=== PATIENT | male | born 1950 | race Two or more races ===

== ENCOUNTER 2017-09-25 13:02 | Inpatient (IN) | payer MEDICAID, MEDICARE ==
[~2017-09-25] VITALS: Ht 175.3 cm; Wt 90.7 kg
--- NOTE | 2017-09-25 14:22 | Emergency Room Report ---
History of Present Illness General Chief Complaint: Altered Level of Consciousness Source: Patient, Medical Record, EMS Present Illness HPI 67-year-old male, history of some developmental delay, psych history, presenting with altered mental status. Patient is confused, EMS stated that patient has been more altered than his usual. Has been incontinent when he is usually not incontinence. When asked the patient, he knows his name but does not know why he is here. He is denying any complaints at this time. No other history is able to be obtained Allergies: Coded Allergies: No Known Allergies (Unverified , 09/25/17) Patient History Past Medical History: see triage record Past Surgical History: none Pertinent Family History: none Reviewed Nursing Documentation: PMH: Agreed, PSxH: Agreed Nursing Documentation-PMH Past Medical History: No History, Except For Hx Cardiac Problems: Yes - Benign Prostatic Hyperplasia Hx Hypertension: Yes Review of Systems All Other Systems: limited - confused Physical Exam Vital Signs Date Time Temp Pulse Resp B/P (MAP) Pulse Ox O2 Delivery O2 Flow Rate FiO2 09/25/17 13:22 96.8 110 18 120/67 98 Room Air Sp02 EP Interpretation: reviewed, normal General Appearance: no apparent distress, alert, other - calm but confused Head: normocephalic, atraumatic Eyes: bilateral eye normal inspection, bilateral eye PERRL, bilateral eye EOMI ENT: normal ENT inspection, normal pharynx, normal voice, moist mucus membranes Neck: normal inspection, full range of motion, supple Respiratory: normal inspection, lungs clear, normal breath sounds, no respiratory distress, no retraction, no wheezing, speaking full sentences, chest symmetrical Cardiovascular #1: normal inspection, regular rate, rhythm, no edema, normal capillary refill Cardiovascular #2: 2+ radial (R), 2+ radial (L) Gastrointestinal: normal inspection, non tender, soft, non-distended, no guarding Genitourinary: no CVA tenderness Musculoskeletal: normal inspection, back normal, normal range of motion, non- tender Neurologic: other - aox1, moves all ext spont, good strength throughout Psychiatric: other - confused, +dev delay Skin: normal inspection, normal color, no rash, warm/dry, well hydrated, normal turgor Medical Decision Making Diagnostic Impression: Primary Impression: Altered level of consciousness ER Course 67-year-old male with altered mental status, for one day DDX: hypovolemic/dehydration vs. cardiac vs. metabolic (hypoglycemia, hyponatremia) , vs neuro (seizure, CVA, intracranial bleed) Versus infectious, UTI/pneumonia Plan: bgm, cbc, bmp, ekg, cxr consider IVF CT head ER course: Patient has been monitored during ED stay, HD stable CT Head neg continues to be confused not febrile, no nuchal rigidity Disposition: Patient is to be admitted to [facility] D/W hospitalist Dr Khan Please note that this Emergency Department Report was dictated using [employer] operator technology software, occasionally this can lead to erroneous entry secondary to interpretation by the dictation equipment. EKG Diagnostic Results EP Interpretation: Yes Rate: normal Rhythm: NSR ST Segments: No acute changes ASA given to patient: No Rhythm Strip EP Interpretation: Yes Rate: 99 Rhythm: NSR, no PVCs, no ectopy Chest X-ray CXR: Ordered: Yes 1 view Indication: Altered mental status EP interpretation: Yes Interpretation: No consolidation, no effusion,mild pulm vasc congestion Impression: mild pulm vasc congestion Electronically signed by Nanci Dickson MD Laboratory Tests Test 09/25/17 14:45 09/25/17 17:39 White Blood Count 12.1 K/UL (4.8-10.8) H Red Blood Count 4.38 M/UL (4.70-6.10) L Hemoglobin 12.5 G/DL (14.2-18.0) L Hematocrit 40.0 % (42.0-52.0) L Mean Corpuscular Volume 91 FL (80-99) Mean Corpuscular Hemoglobin 28.6 PG (27.0-31.0) Mean Corpuscular Hemoglobin Concent 31.3 G/DL (32.0-36.0) L Red Cell Distribution Width 12.4 % (11.6-14.8) Platelet Count 178 K/UL (150-450) Mean Platelet Volume 6.9 FL (6.5-10.1) Neutrophils (%) (Auto) 81.3 % (45.0-75.0) H Lymphocytes (%) (Auto) 10.7 % (20.0-45.0) L Monocytes (%) (Auto) 7.0 % (1.0-10.0) Eosinophils (%) (Auto) 0.2 % (0.0-3.0) Basophils (%) (Auto) 0.8 % (0.0-2.0) Sodium Level 135 MMOL/L (136-145) L Potassium Level 3.7 MMOL/L (3.5-5.1) Chloride Level 99 MMOL/L (98-107) Carbon Dioxide Level 28 MMOL/L (21-32) Anion Gap 8 mmol/L (5-15) Blood Urea Nitrogen 14 mg/dL (7-18) Creatinine 0.9 MG/DL (0.55-1.30) Estimate Glomerular Filtration Rate > 60 mL/min (>60) Glucose Level 111 MG/DL (74-106) H Calcium Level 8.1 MG/DL (8.5-10.1) L Total Bilirubin 0.9 MG/DL (0.2-1.0) Aspartate Amino Transferase (AST) 32 U/L (15-37) Alanine Aminotransferase (ALT) 42 U/L (12-78) Alkaline Phosphatase 63 U/L (46-116) Troponin I 0.006 ng/mL (0.000-0.056) Pro-B-Type Natriuretic Peptide 73 pg/mL (0-125) Total Protein 7.5 G/DL (6.4-8.2) Albumin 3.6 G/DL (3.4-5.0) Globulin 3.9 g/dL Albumin/Globulin Ratio 0.9 (1.0-2.7) L Serum Alcohol < 3 mg/dL Urine Color Pale yellow Urine Appearance Clear Urine pH 7 (4.5-8.0) Urine Specific [place] 1.010 (1.005-1.035) Urine Protein Negative (NEGATIVE) Urine Glucose (UA) Negative (NEGATIVE) Urine Ketones Negative (NEGATIVE) Urine Occult Blood Negative (NEGATIVE) Urine Nitrite Negative (NEGATIVE) Urine Bilirubin Negative (NEGATIVE) Urine Urobilinogen Normal MG/DL (0.0-1.0) Urine Leukocyte Esterase Negative (NEGATIVE) Urine Opiates Screen Negative (NEGATIVE) Urine Barbiturates Screen Negative (NEGATIVE) Phencyclidine (PCP) Screen Negative (NEGATIVE) Urine Amphetamines Screen Negative (NEGATIVE) Urine Benzodiazepines Screen Negative (NEGATIVE) Urine Cocaine Screen Negative (NEGATIVE) Urine Marijuana (THC) Screen Negative (NEGATIVE) CT/MRI/US Diagnostic Results CT/MRI/US Diagnostic Results : Imaging Test Ordered: CT Head Last Vital Signs Date Time Temp Pulse Resp B/P (MAP) Pulse Ox O2 Delivery O2 Flow Rate FiO2 09/25/17 13:22 96.8 110 18 120/67 98 Room Air Disposition: ADMITTED INPATIENT Condition: Serious Nanci Dickson M.D. Sep 25, 2017 14:22
[2017-09-25 15:21] LABS: BASOPHILS % (AUTO) 0.8 % (0.0-2.0); EOSINOPHILS % (AUTO) 0.2 % (0.0-3.0); HEMOGLOBIN 12.5 G/DL (14.2-18.0); LYMPHOCYTES % (AUTO) 10.7 % (20.0-45.0); MEAN CORPUSCULAR VOLUME 91 FL (80-99); NEUTROPHILS % (AUTO) 81.3 % (45.0-75.0); PLATELET COUNT 178 K/UL (150-450); RED BLOOD COUNT 4.38 M/UL (4.70-6.10); RED CELL DISTRIBUTION WIDTH 12.4 % (11.6-14.8); WHITE BLOOD COUNT 12.1 K/UL (4.8-10.8)
--- NOTE | 2017-09-25 15:21 | Diagnostic Imaging Report ---
Indication: Chest pain Technique: One view of the chest Comparison: 04/23/2006 Findings: There is mild interstitial congestion. The heart size is upper limits of normal. There is some atelectasis of left lung base. There is equivocal blunting of left costophrenic sulcus, small effusion not excludable Impression: Mild interstitial congestion Atelectasis Possible small left pleural effusion
[2017-09-25 15:28] LABS: ANION GAP 8 mmol/L (5-15); BLOOD UREA NITROGEN 14 mg/dL (7-18); CALCIUM 8.1 MG/DL (8.5-10.1); CARBON DIOXIDE 28 MMOL/L (21-32); CHLORIDE 99 MMOL/L (98-107); CREATININE 0.9 MG/DL (0.55-1.30); POTASSIUM 3.7 MMOL/L (3.5-5.1); SODIUM 135 MMOL/L (136-145)
[2017-09-25 15:41] LABS: ALANINE AMINOTRANSFERASE 42 U/L (12-78); ALBUMIN 3.6 G/DL (3.4-5.0); ALBUMIN/GLOBULIN RATIO 0.9 (1.0-2.7); ALKALINE PHOSPHATASE 63 U/L (46-116); ASPARTATE AMINO TRANSFERASE 32 U/L (15-37); BILIRUBIN,TOTAL 0.9 MG/DL (0.2-1.0)
--- NOTE | 2017-09-25 15:58 | Diagnostic Imaging Report ---
Indications: Altered mental status Technique: Spiral acquisitions obtained through the brain. Angled axial and coronal 5 x 5 mm slices were reconstructed. Total dose length product 1439.42 mGycm. CTDI vol(s) 70.38 mGy. Dose reduction achieved using automated exposure control Comparison: 04/20/2006 Findings: No acute intracranial hemorrhage or edema. No mass effect nor midline shift. There is progressive enlargement of ventricles and extra axial CSF spaces. 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 There is minimal left maxillary sinus mucosal thickening. The mastoids are clear. The visualized portions of the orbits are unremarkable Impression: Chronic and age-related changes. Negative for acute intracranial bleed or mass effect The CT scanner at [facility] is accredited by the [employer] and the scans are performed using protocols designed to limit radiation exposure to as low as reasonably achievable to attain images of sufficient resolution adequate for diagnostic evaluation.
[2017-09-25 16:18] VITALS: BP 120/67
[2017-09-25 18:19] LABS: APPEARANCE,URINE CLEAR; BILIRUBIN, URINE NEGATIVE (NEGATIVE); COLOR,URINE PALE YELLOW; GLUCOSE, URINE (UA) NEGATIVE (NEGATIVE); KETONES,URINE NEGATIVE (NEGATIVE); LEUKOCYTE ESTERASE ,URINE NEGATIVE (NEGATIVE); NITRITE,URINE NEGATIVE (NEGATIVE); PH,URINE 7 (4.5-8.0); PROTEIN,URINE NEGATIVE (NEGATIVE); UROBILINOGEN,URINE NORMAL MG/DL (0.0-1.0)
[2017-09-25] MEDS ORDERED: LASIX20 M1 ORAL (19:23)
[2017-09-25] MEDS ORDERED: [UNRECOGNIZED DRUG - OTHER] (19:23)
[2017-09-25] MEDS ORDERED: OMEPRAZOLE20 M2 ORAL (19:23)
[2017-09-25] MEDS ORDERED: METOPROLOL TART50 M1 ORAL (19:23)
[2017-09-25] MEDS ORDERED: KETOTIFEN FUMARA5 ML OP (19:23)
[2017-09-25] MEDS ORDERED: FISH OIL CAP1000 MG ORAL (19:23)
[2017-09-25] MEDS ORDERED: RESPIRIDONE (19:23)
[2017-09-25] MEDS ORDERED: BENZTROPINE MESY2 MG ORAL (19:23)
[2017-09-25] MEDS ORDERED: VITAMIN D400 INTLU ORAL (19:23)
[2017-09-25] MEDS ORDERED: TAMSULOSIN HCL0.4 MG ORAL (19:23)
[2017-09-25] MEDS ORDERED: ASPIRIN81 MG ORAL (19:23)
[2017-09-25 19:30] VITALS: BP 111/63
[2017-09-25 20:19] VITALS: BP 115/67
[2017-09-25] MEDS ORDERED: Miralax 17gm pkt ORAL PRN (23:00)
[2017-09-25] MEDS ORDERED: Mylanta II UD 30ml ORAL PRN (23:00)
[2017-09-25] MEDS ORDERED: Morphine Sulfate 2mg/ml Inj IVP PRN (23:00)
[2017-09-26] VITALS: BP_SYST 115; BP_SYST 138; BP_DIAS 67; BP_DIAS 76
[2017-09-26 04:00] VITALS: BP 130/71
[2017-09-26 07:34] LABS: BASOPHILS % (AUTO) 0.7 % (0.0-2.0); EOSINOPHILS % (AUTO) 2.7 % (0.0-3.0); HEMATOCRIT 37.9 % (42.0-52.0); HEMOGLOBIN 12.4 G/DL (14.2-18.0); LYMPHOCYTES % (AUTO) 17.5 % (20.0-45.0); MEAN CORPUSCULAR VOLUME 93 FL (80-99); MONOCYTES % (AUTO) 8.9 % (1.0-10.0); NEUTROPHILS % (AUTO) 70.1 % (45.0-75.0); PLATELET COUNT 154 K/UL (150-450); RED BLOOD COUNT 4.07 M/UL (4.70-6.10); RED CELL DISTRIBUTION WIDTH 12.9 % (11.6-14.8); WHITE BLOOD COUNT 9.4 K/UL (4.8-10.8)
[2017-09-26 08:00] VITALS: BP 135/71
[2017-09-26 08:12] LABS: ALANINE AMINOTRANSFERASE 37 U/L (12-78); ALBUMIN 3.5 G/DL (3.4-5.0); ALBUMIN/GLOBULIN RATIO 0.9 (1.0-2.7); ALKALINE PHOSPHATASE 63 U/L (46-116); ANION GAP 6 mmol/L (5-15); ASPARTATE AMINO TRANSFERASE 26 U/L (15-37); BILIRUBIN,TOTAL 1.1 MG/DL (0.2-1.0); BLOOD UREA NITROGEN 13 mg/dL (7-18); CALCIUM 8.2 MG/DL (8.5-10.1); CARBON DIOXIDE 30 MMOL/L (21-32); CHLORIDE 103 MMOL/L (98-107); CHOLESTEROL 138 MG/DL (< 200); CREATININE 0.8 MG/DL (0.55-1.30); HDL CHOLESTEROL 48 MG/DL (40-60); POTASSIUM 3.7 MMOL/L (3.5-5.1); SODIUM 139 MMOL/L (136-145); TRIGLYCERIDES 106 MG/DL (30-150)
[2017-09-26 08:18] LABS: BILIRUBIN,DIRECT 0.2 MG/DL (0.0-0.3)
[2017-09-26] MEDS: Aspirin Baby 81mg ORAL SCH (08:49)
[2017-09-26] MEDS: Metoprolol Tartrate 50mg tab ORAL SCH (08:50)
[2017-09-26] MEDS: Benztropine 1mg tab ORAL SCH ×2 (08:50→17:13)
[2017-09-26] MEDS: Heparin 5000 units/ml inj SUBQ SCH ×2 (08:50→21:36)
[2017-09-26 11:44] VITALS: BP 105/69
--- NOTE | 2017-09-26 12:37 | Neurology Progress Note ---
Objective Physical Exam Last Vital Signs Date Time Temp Pulse Resp B/P (MAP) Pulse Ox O2 Delivery O2 Flow Rate FiO2 09/26/17 11:44 97.9 18 105/69 94 Room Air 09/26/17 08:50 88 Laboratory Tests Test 09/25/17 14:45 09/25/17 17:39 09/26/17 06:40 White Blood Count 12.1 K/UL (4.8-10.8) H 9.4 K/UL (4.8-10.8) Red Blood Count 4.38 M/UL (4.70-6.10) L 4.07 M/UL (4.70-6.10) L Hemoglobin 12.5 G/DL (14.2-18.0) L 12.4 G/DL (14.2-18.0) L Hematocrit 40.0 % (42.0-52.0) L 37.9 % (42.0-52.0) L Mean Corpuscular Volume 91 FL (80-99) 93 FL (80-99) Mean Corpuscular Hemoglobin 28.6 PG (27.0-31.0) 30.4 PG (27.0-31.0) Mean Corpuscular Hemoglobin Concent 31.3 G/DL (32.0-36.0) L 32.6 G/DL (32.0-36.0) Red Cell Distribution Width 12.4 % (11.6-14.8) 12.9 % (11.6-14.8) Platelet Count 178 K/UL (150-450) 154 K/UL (150-450) Mean Platelet Volume 6.9 FL (6.5-10.1) 7.9 FL (6.5-10.1) Neutrophils (%) (Auto) 81.3 % (45.0-75.0) H 70.1 % (45.0-75.0) Lymphocytes (%) (Auto) 10.7 % (20.0-45.0) L 17.5 % (20.0-45.0) L Monocytes (%) (Auto) 7.0 % (1.0-10.0) 8.9 % (1.0-10.0) Eosinophils (%) (Auto) 0.2 % (0.0-3.0) 2.7 % (0.0-3.0) Basophils (%) (Auto) 0.8 % (0.0-2.0) 0.7 % (0.0-2.0) Sodium Level 135 MMOL/L (136-145) L 139 MMOL/L (136-145) Potassium Level 3.7 MMOL/L (3.5-5.1) 3.7 MMOL/L (3.5-5.1) Chloride Level 99 MMOL/L (98-107) 103 MMOL/L (98-107) Carbon Dioxide Level 28 MMOL/L (21-32) 30 MMOL/L (21-32) Anion Gap 8 mmol/L (5-15) 6 mmol/L (5-15) Blood Urea Nitrogen 14 mg/dL (7-18) 13 mg/dL (7-18) Creatinine 0.9 MG/DL (0.55-1.30) 0.8 MG/DL (0.55-1.30) Estimat Glomerular Filtration Rate > 60 mL/min (>60) > 60 mL/min (>60) Glucose Level 111 MG/DL (74-106) H 108 MG/DL (74-106) H Calcium Level 8.1 MG/DL (8.5-10.1) L 8.2 MG/DL (8.5-10.1) L Total Bilirubin 0.9 MG/DL (0.2-1.0) 1.1 MG/DL (0.2-1.0) H Aspartate Amino Transf (AST/SGOT) 32 U/L (15-37) 26 U/L (15-37) Alanine Aminotransferase (ALT/SGPT) 42 U/L (12-78) 37 U/L (12-78) Alkaline Phosphatase 63 U/L (46-116) 63 U/L (46-116) Troponin I 0.006 ng/mL (0.000-0.056) Pro-B-Type Natriuretic Peptide 73 pg/mL (0-125) Total Protein 7.5 G/DL (6.4-8.2) 7.6 G/DL (6.4-8.2) Albumin 3.6 G/DL (3.4-5.0) 3.5 G/DL (3.4-5.0) Globulin 3.9 g/dL 4.1 g/dL Albumin/Globulin Ratio 0.9 (1.0-2.7) L 0.9 (1.0-2.7) L Serum Alcohol < 3 mg/dL Urine Color Pale yellow Urine Appearance Clear Urine pH 7 (4.5-8.0) Urine Specific [place] 1.010 (1.005-1.035) Urine Protein Negative (NEGATIVE) Urine Glucose (UA) Negative (NEGATIVE) Urine Ketones Negative (NEGATIVE) Urine Occult Blood Negative (NEGATIVE) Urine Nitrite Negative (NEGATIVE) Urine Bilirubin Negative (NEGATIVE) Urine Urobilinogen Normal MG/DL (0.0-1.0) Urine Leukocyte Esterase Negative (NEGATIVE) Urine Opiates Screen Negative (NEGATIVE) Urine Barbiturates Screen Negative (NEGATIVE) Phencyclidine (PCP) Screen Negative (NEGATIVE) Urine Amphetamines Screen Negative (NEGATIVE) Urine Benzodiazepines Screen Negative (NEGATIVE) Urine Cocaine Screen Negative (NEGATIVE) Urine Marijuana (THC) Screen Negative (NEGATIVE) Hemoglobin A1c 6.5 % (4.3-6.0) H Direct Bilirubin 0.2 MG/DL (0.0-0.3) Triglycerides Level 106 MG/DL (30-150) Cholesterol Level 138 MG/DL (< 200) LDL Cholesterol 79 mg/dL (<100) HDL Cholesterol 48 MG/DL (40-60) Cholesterol/HDL Ratio 2.9 (3.3-4.4) L Thyroid Stimulating Hormone (TSH) 1.156 uiU/mL (0.358-3.740) Impression/Recommendations Recommendations # [id number] MAGDALENA ARGUELLO Sep 26, 2017 12:37
[2017-09-26 16:00] VITALS: BP 128/77
[2017-09-26] MEDS: LORazepam Inj 2mg/ml 1ml IV PRN (16:03)
--- NOTE | 2017-09-26 16:03 | Wound Care Consultation ---
Wound Assessment Wound Assessment : Wound Number: 1 Wound Present on Admission: Yes New Wound: No Status Change of Wound: No Wound Location Body Site Modif: mid, lower Wound Location Body Site: abdomen Wound Type: lesion-etiology unknown Artie Test: Does not Artie Wound Thickness: Full Thickness Wound Length: 2.5 Wound Width: 2.5 Wound Depth: utd Percent of Wound Bed Yellow/Wh: 100 Wound Drainage Description: Serosanguineous Wound Drainage Amount: Scant Wound Drainage Odor: None/Absent Tissue Surrounding Wound: Intact Wound General Appearance: Reddened - yellow, Draining Wound Comment #1 Open wound on mid lower abdomen. Etiology unknown -Cleanse with saline, pat dry, apply Xeroform gauze, cover with Bordered gauze daily and PRN soiled/dislodged -Assess and f/u with MD for any changes -Optimize nutrition -Keep clean and dry TERRY UPTON RN Sep 26, 2017 16:03
[2017-09-26] MEDS: NovoLOG Insulin Flexpen SUBQ SCH ×2 (17:16→21:37)
--- NOTE | 2017-09-26 18:56 | Consultation ---
History of Present Illness General Date patient seen: Sep 26, 2017 Time patient seen: 18:48 Chief Complaint: Altered Level of Consciousness Present Illness HPI 67 y/o M with hx of Developmental delay, BPH, HTN, psych disorder is brought to ED on 09/25 for AMS, urinary incontinence. Afebrile. Initial mild leukocytosis, now resolved. u.a neg, CXR with no PNA. off abx. Allergies: Coded Allergies: No Known Allergies (Unverified , 09/25/17) Medication History Scheduled Aspirin* (Aspirin*), 81 MG ORAL DAILY, (Reported) Benztropine Mesylate* (Benztropine Mesylate*), 2 MG ORAL BID, (Reported) Fish Oil (Fish Oil 1,000 mg Capsule), 1,000 MG ORAL TID, (Reported) Furosemide* (Lasix*), 20 MG ORAL TWICE A DAY, (Reported) Metoprolol Tartrate* (Metoprolol Tartrate*), 50 MG ORAL DAILY, (Reported) Omeprazole (Omeprazole), 20 MG ORAL DAILY, (Reported) Tamsulosin Hcl (Tamsulosin Hcl*), 0.4 MG ORAL BEDTIME, (Reported) Vitamin D (Vitamin D3), 2,000 UNITS ORAL DAILY, (Reported) Miscellaneous Medications Ketotifen Fumarate (Ketotifen Fumarate), 5 ML OP, (Reported) [paraxetine], 40, (Reported) [respiridone], 3, (Reported) Patient History Healthcare decision maker N Resuscitation status Advanced Directive on File No Patient History Narrative PMhx: as above Shx: reviewed Fhx: non contributory Review of Systems ROS Narrative unable to obtain Physical Exam Physical Exam Narrative General Appearance: no apparent distress, alert, other - calm but confused HEENTnormocephalic, atraumaticbilateral eye PERRL, bilateral eye EOMI moist mucus membranes Neck: normal inspection, full range of motion, supple Respiratory: normal inspection, lungs clear, normal breath sounds, no respiratory distress, no retraction, no wheezing, speaking full sentences, chest symmetrical Cardiovascular normal inspection, regular rate, rhythm, no edema Gastrointestinal: normal inspection, non tender, soft, non-distended, no guarding Genitourinary: no CVA tenderness Musculoskeletal: normal inspection, back normal, normal range of motion, non- tender Neurologic: other - aox1, moves all ext spont, good strength throughout Psychiatric: other - confused, +dev delay Skin: normal inspection, normal color, no rash, warm/dry, well hydrated, normal turgor Last 24 Hour Vital Signs Date Time Temp Pulse Resp B/P (MAP) Pulse Ox O2 Delivery O2 Flow Rate FiO2 09/26/17 16:00 97.6 18 128/77 92 Room Air 09/26/17 11:44 97.9 18 105/69 94 Room Air 09/26/17 08:50 88 135/71 09/26/17 08:00 98.2 88 21 135/71 93 Room Air 09/26/17 04:00 95 Room Air 09/26/17 04:00 98.1 75 19 130/71 95 Room Air 09/26/17 00:00 98 Room Air 09/26/17 00:00 97.8 78 20 138/76 98 Room Air 09/25/17 20:20 94 Room Air 09/25/17 20:19 97.7 78 20 115/67 91 Room Air 09/25/17 20:00 98.6 82 15 115/69 91 Room Air 09/25/17 19:30 98.6 80 17 111/63 91 Room Air Intake and Output 09/25/17 09/26/17 19:00 07:00 Intake Total 120 ml Balance 120 ml Intake Oral 120 ml # Bowel Movements 1 Laboratory Tests Test 09/26/17 06:40 White Blood Count 9.4 K/UL (4.8-10.8) Red Blood Count 4.07 M/UL (4.70-6.10) L Hemoglobin 12.4 G/DL (14.2-18.0) L Hematocrit 37.9 % (42.0-52.0) L Mean Corpuscular Volume 93 FL (80-99) Mean Corpuscular Hemoglobin 30.4 PG (27.0-31.0) Mean Corpuscular Hemoglobin Concent 32.6 G/DL (32.0-36.0) Red Cell Distribution Width 12.9 % (11.6-14.8) Platelet Count 154 K/UL (150-450) Mean Platelet Volume 7.9 FL (6.5-10.1) Neutrophils (%) (Auto) 70.1 % (45.0-75.0) Lymphocytes (%) (Auto) 17.5 % (20.0-45.0) L Monocytes (%) (Auto) 8.9 % (1.0-10.0) Eosinophils (%) (Auto) 2.7 % (0.0-3.0) Basophils (%) (Auto) 0.7 % (0.0-2.0) Sodium Level 139 MMOL/L (136-145) Potassium Level 3.7 MMOL/L (3.5-5.1) Chloride Level 103 MMOL/L (98-107) Carbon Dioxide Level 30 MMOL/L (21-32) Anion Gap 6 mmol/L (5-15) Blood Urea Nitrogen 13 mg/dL (7-18) Creatinine 0.8 MG/DL (0.55-1.30) Estimat Glomerular Filtration Rate > 60 mL/min (>60) Glucose Level 108 MG/DL (74-106) H Hemoglobin A1c 6.5 % (4.3-6.0) H Calcium Level 8.2 MG/DL (8.5-10.1) L Total Bilirubin 1.1 MG/DL (0.2-1.0) H Direct Bilirubin 0.2 MG/DL (0.0-0.3) Aspartate Amino Transf (AST/SGOT) 26 U/L (15-37) Alanine Aminotransferase (ALT/SGPT) 37 U/L (12-78) Alkaline Phosphatase 63 U/L (46-116) Total Protein 7.6 G/DL (6.4-8.2) Albumin 3.5 G/DL (3.4-5.0) Globulin 4.1 g/dL Albumin/Globulin Ratio 0.9 (1.0-2.7) L Triglycerides Level 106 MG/DL (30-150) Cholesterol Level 138 MG/DL (< 200) LDL Cholesterol 79 mg/dL (<100) HDL Cholesterol 48 MG/DL (40-60) Cholesterol/HDL Ratio 2.9 (3.3-4.4) L Thyroid Stimulating Hormone (TSH) 1.156 uiU/mL (0.358-3.740) Height (Feet): 5 Height (Inches): 9.00 Weight (Pounds): 200 Medications Current Medications Medications (Trade) Dose Ordered Sig/Dominick Route PRN Reason Start Time Stop Time Status Last Admin Dose Admin Acetaminophen (Tylenol) 650 mg Q4H PRN ORAL fever 09/25/17 23:00 10/25/17 22:59 Al Hydroxide/Mg Hydroxide (Mylanta II) 30 ml Q6H PRN ORAL dyspepsia 09/25/17 23:00 10/25/17 22:59 Aspirin (ASA) 81 mg DAILY ORAL 09/26/17 09:00 10/26/17 08:59 09/26/17 08:49 Benztropine Mesylate (Cogentin) 2 mg BID ORAL 09/26/17 09:00 10/26/17 08:59 09/26/17 17:13 Dextrose (Dextrose 50%) STAT PRN IV Hypoglycemia 09/25/17 23:00 10/25/17 22:59 Heparin Sodium (Porcine) (Heparin 5000 units/ml) 5,000 units EVERY 12 HOURS SUBQ 09/26/17 09:00 10/26/17 08:59 Insulin Aspart (NovoLOG) BEFORE MEALS AND HS SUBQ 09/26/17 16:30 10/26/17 16:29 09/26/17 17:16 Lorazepam (Ativan 2mg/ml 1ml) 0.5 mg Q4H PRN IV For Anxiety 09/25/17 23:00 10/02/17 22:59 09/26/17 16:03 Metoprolol Tartrate (Lopressor) 50 mg DAILY ORAL 09/26/17 09:00 10/26/17 08:59 09/26/17 08:50 Morphine Sulfate (Morphine Sulfate) 1 mg EVERY 4 HOURS PRN IVP For Pain 09/25/17 23:00 10/02/17 22:59 Ondansetron HCl (Zofran) 4 mg Q6H PRN IVP Nausea & Vomiting 09/25/17 23:00 10/25/17 22:59 Polyethylene Glycol (Miralax) 17 gm HSPRN PRN ORAL Constipation 09/25/17 23:00 10/25/17 22:59 Tamsulosin HCl (Flomax) 0.4 mg BEDTIME ORAL 09/26/17 21:00 10/26/17 20:59 Zolpidem Tartrate (Ambien) 5 mg HSPRN PRN ORAL Insomnia 09/25/17 23:00 10/02/17 22:59 Assessment/Plan Assessment/Plan Abx: None Assessment: AMS- no apparent acute infectious process, no meningisums -u/a neg -CXR: Mild interstitial congestion. Atelectasis. Possible small left pleural effusion -CT head: no acute process Mild leukocytosis, resolved Afebrile Developmental delay BPH HTN psych disorder Plan: -Continue to monitor off abx -Neuro following -consider MRI brain, +/- LP if not improving -check HIV ab, RPR, vit b12, folate and TSH -Monitor CBC/BMP, temperatures -aspiration precautions Thank you for this consultation. Will continue to follow along with you. Discussed with KATELYN. Tati Aparicio M.D. Sep 26, 2017 18:56
[2017-09-26 20:07] VITALS: BP 122/74
--- NOTE | 2017-09-26 21:07 | History and Physical ---
History of Present Illness General Date patient seen: Sep 25, 2017 Reason for Hospitalization: Altered Level of Consciousness Present Illness HPI 67 year old male with hx of mental retardation is brought in by paramedics acute consfusion. Allergies: Coded Allergies: No Known Allergies (Unverified , 09/25/17) Medication History Scheduled Aspirin* (Aspirin*), 81 MG ORAL DAILY, (Reported) Benztropine Mesylate* (Benztropine Mesylate*), 2 MG ORAL BID, (Reported) Fish Oil (Fish Oil 1,000 mg Capsule), 1,000 MG ORAL TID, (Reported) Furosemide* (Lasix*), 20 MG ORAL TWICE A DAY, (Reported) Metoprolol Tartrate* (Metoprolol Tartrate*), 50 MG ORAL DAILY, (Reported) Omeprazole (Omeprazole), 20 MG ORAL DAILY, (Reported) Tamsulosin Hcl (Tamsulosin Hcl*), 0.4 MG ORAL BEDTIME, (Reported) Vitamin D (Vitamin D3), 2,000 UNITS ORAL DAILY, (Reported) Miscellaneous Medications Ketotifen Fumarate (Ketotifen Fumarate), 5 ML OP, (Reported) [paraxetine], 40, (Reported) [respiridone], 3, (Reported) Patient History Healthcare decision maker N Resuscitation status Advanced Directive on File No Review of Systems All Other Systems: negative except mentioned in HPI Physical Exam General Appearance: WD/WN, no apparent distress Lines, tubes and drains: peripheral HEENT: normocephalic, anicteric Neck: non-tender, normal alignment Respiratory/Chest: chest wall non-tender, lungs clear Cardiovascular/Chest: normal peripheral pulses, normal rate Abdomen: non tender Last 24 Hour Vital Signs Date Time Temp Pulse Resp B/P (MAP) Pulse Ox O2 Delivery O2 Flow Rate FiO2 09/26/17 20:07 97.3 65 21 122/74 93 Room Air 09/26/17 16:00 97.6 18 128/77 92 Room Air 09/26/17 11:44 97.9 18 105/69 94 Room Air 09/26/17 08:50 88 135/71 09/26/17 08:00 98.2 88 21 135/71 93 Room Air 09/26/17 04:00 95 Room Air 09/26/17 04:00 98.1 75 19 130/71 95 Room Air 09/26/17 00:00 98 Room Air 09/26/17 00:00 97.8 78 20 138/76 98 Room Air Intake and Output 09/25/17 09/26/17 19:00 07:00 Intake Total 120 ml Balance 120 ml Intake Oral 120 ml # Bowel Movements 1 Laboratory Tests Test 09/26/17 06:40 White Blood Count 9.4 K/UL (4.8-10.8) Red Blood Count 4.07 M/UL (4.70-6.10) L Hemoglobin 12.4 G/DL (14.2-18.0) L Hematocrit 37.9 % (42.0-52.0) L Mean Corpuscular Volume 93 FL (80-99) Mean Corpuscular Hemoglobin 30.4 PG (27.0-31.0) Mean Corpuscular Hemoglobin Concent 32.6 G/DL (32.0-36.0) Red Cell Distribution Width 12.9 % (11.6-14.8) Platelet Count 154 K/UL (150-450) Mean Platelet Volume 7.9 FL (6.5-10.1) Neutrophils (%) (Auto) 70.1 % (45.0-75.0) Lymphocytes (%) (Auto) 17.5 % (20.0-45.0) L Monocytes (%) (Auto) 8.9 % (1.0-10.0) Eosinophils (%) (Auto) 2.7 % (0.0-3.0) Basophils (%) (Auto) 0.7 % (0.0-2.0) Sodium Level 139 MMOL/L (136-145) Potassium Level 3.7 MMOL/L (3.5-5.1) Chloride Level 103 MMOL/L (98-107) Carbon Dioxide Level 30 MMOL/L (21-32) Anion Gap 6 mmol/L (5-15) Blood Urea Nitrogen 13 mg/dL (7-18) Creatinine 0.8 MG/DL (0.55-1.30) Estimat Glomerular Filtration Rate > 60 mL/min (>60) Glucose Level 108 MG/DL (74-106) H Hemoglobin A1c 6.5 % (4.3-6.0) H Calcium Level 8.2 MG/DL (8.5-10.1) L Total Bilirubin 1.1 MG/DL (0.2-1.0) H Direct Bilirubin 0.2 MG/DL (0.0-0.3) Aspartate Amino Transf (AST/SGOT) 26 U/L (15-37) Alanine Aminotransferase (ALT/SGPT) 37 U/L (12-78) Alkaline Phosphatase 63 U/L (46-116) Total Protein 7.6 G/DL (6.4-8.2) Albumin 3.5 G/DL (3.4-5.0) Globulin 4.1 g/dL Albumin/Globulin Ratio 0.9 (1.0-2.7) L Triglycerides Level 106 MG/DL (30-150) Cholesterol Level 138 MG/DL (< 200) LDL Cholesterol 79 mg/dL (<100) HDL Cholesterol 48 MG/DL (40-60) Cholesterol/HDL Ratio 2.9 (3.3-4.4) L Thyroid Stimulating Hormone (TSH) 1.156 uiU/mL (0.358-3.740) Height (Feet): 5 Height (Inches): 9.00 Weight (Pounds): 200 Medications Current Medications Medications (Trade) Dose Ordered Sig/Dominick Route PRN Reason Start Time Stop Time Status Last Admin Dose Admin Acetaminophen (Tylenol) 650 mg Q4H PRN ORAL fever 09/25/17 23:00 10/25/17 22:59 Al Hydroxide/Mg Hydroxide (Mylanta II) 30 ml Q6H PRN ORAL dyspepsia 09/25/17 23:00 10/25/17 22:59 Aspirin (ASA) 81 mg DAILY ORAL 09/26/17 09:00 10/26/17 08:59 09/26/17 08:49 Benztropine Mesylate (Cogentin) 2 mg BID ORAL 09/26/17 09:00 10/26/17 08:59 09/26/17 17:13 Dextrose (Dextrose 50%) STAT PRN IV Hypoglycemia 09/25/17 23:00 10/25/17 22:59 Heparin Sodium (Porcine) (Heparin 5000 units/ml) 5,000 units EVERY 12 HOURS SUBQ 09/26/17 09:00 10/26/17 08:59 Insulin Aspart (NovoLOG) BEFORE MEALS AND HS SUBQ 09/26/17 16:30 10/26/17 16:29 09/26/17 17:16 Lorazepam (Ativan 2mg/ml 1ml) 0.5 mg Q4H PRN IV For Anxiety 09/25/17 23:00 10/02/17 22:59 09/26/17 16:03 Metoprolol Tartrate (Lopressor) 50 mg DAILY ORAL 09/26/17 09:00 10/26/17 08:59 09/26/17 08:50 Morphine Sulfate (Morphine Sulfate) 1 mg EVERY 4 HOURS PRN IVP For Pain 09/25/17 23:00 10/02/17 22:59 Ondansetron HCl (Zofran) 4 mg Q6H PRN IVP Nausea & Vomiting 09/25/17 23:00 10/25/17 22:59 Polyethylene Glycol (Miralax) 17 gm HSPRN PRN ORAL Constipation 09/25/17 23:00 10/25/17 22:59 Tamsulosin HCl (Flomax) 0.4 mg BEDTIME ORAL 09/26/17 21:00 10/26/17 20:59 Zolpidem Tartrate (Ambien) 5 mg HSPRN PRN ORAL Insomnia 09/25/17 23:00 10/02/17 22:59 Assessment/Plan Problem List: (1) Acute encephalopathy ICD Codes: G93.40 - Encephalopathy, unspecified SNOMED: [id number] Assessment[facility] FARIBA GUARDADO Sep 26, 2017 21:07
--- NOTE | 2017-09-26 21:10 | Pulmonology Progress Note ---
Assessment/Plan Problems: (1) Acute encephalopathy Assessment/Plan neuro and ID consults reviewed f/u neuro evaluation psych evaluation Subjective ROS Limited/Unobtainable: No Constitutional: Reports: no symptoms HEENT: Repors: no symptoms Respiratory: Reports: no symptoms Allergies: Coded Allergies: No Known Allergies (Unverified , 09/25/17) Objective Last 24 Hour Vital Signs Date Time Temp Pulse Resp B/P (MAP) Pulse Ox O2 Delivery O2 Flow Rate FiO2 09/26/17 20:07 97.3 65 21 122/74 93 Room Air 09/26/17 16:00 97.6 18 128/77 92 Room Air 09/26/17 11:44 97.9 18 105/69 94 Room Air 09/26/17 08:50 88 135/71 09/26/17 08:00 98.2 88 21 135/71 93 Room Air 09/26/17 04:00 95 Room Air 09/26/17 04:00 98.1 75 19 130/71 95 Room Air 09/26/17 00:00 98 Room Air 09/26/17 00:00 97.8 78 20 138/76 98 Room Air Intake and Output 09/25/17 09/26/17 19:00 07:00 Intake Total 120 ml Balance 120 ml Intake Oral 120 ml # Bowel Movements 1 General Appearance: WD/WN Respiratory/Chest: chest wall non-tender, lungs clear Cardiovascular: normal rate, regular rhythm Abdomen: normal bowel sounds, soft, non tender Genitourinary: normal external genitalia Extremities: no cyanosis Neurologic/Psychiatric: dining room manager II-XII grossly normal, abnormal gait Lymphatic: no neck adenopathy Laboratory Tests 09/26/17 06:40: White Blood Count 9.4, Red Blood Count 4.07L, Hemoglobin 12.4L, Hematocrit 37.9L , Mean Corpuscular Volume 93, Mean Corpuscular Hemoglobin 30.4, Mean Corpuscular Hemoglobin Concent 32.6, Red Cell Distribution Width 12.9, Platelet Count 154, Mean Platelet Volume 7.9, Neutrophils (%) (Auto) 70.1, Lymphocytes (% ) (Auto) 17.5L, Monocytes (%) (Auto) 8.9, Eosinophils (%) (Auto) 2.7, Basophils (%) (Auto) 0.7, Sodium Level 139, Potassium Level 3.7, Chloride Level 103, Carbon Dioxide Level 30, Anion Gap 6, Blood Urea Nitrogen 13, Creatinine 0.8, Estimat Glomerular Filtration Rate > 60, Glucose Level 108H, Hemoglobin A1c 6.5H , Calcium Level 8.2L, Total Bilirubin 1.1H, Direct Bilirubin 0.2, Aspartate Amino Transf (AST/SGOT) 26, Alanine Aminotransferase (ALT/SGPT) 37, Alkaline Phosphatase 63, Total Protein 7.6, Albumin 3.5, Globulin 4.1, Albumin/Globulin Ratio 0.9L, Triglycerides Level 106, Cholesterol Level 138, LDL Cholesterol 79, HDL Cholesterol 48, Cholesterol/HDL Ratio 2.9L, Thyroid Stimulating Hormone (TSH ) 1.156 Current Medications Medications (Trade) Dose Ordered Sig/Dominick Route PRN Reason Start Time Stop Time Status Last Admin Dose Admin Acetaminophen (Tylenol) 650 mg Q4H PRN ORAL fever 09/25/17 23:00 10/25/17 22:59 Al Hydroxide/Mg Hydroxide (Mylanta II) 30 ml Q6H PRN ORAL dyspepsia 09/25/17 23:00 10/25/17 22:59 Aspirin (ASA) 81 mg DAILY ORAL 09/26/17 09:00 10/26/17 08:59 09/26/17 08:49 Benztropine Mesylate (Cogentin) 2 mg BID ORAL 09/26/17 09:00 10/26/17 08:59 09/26/17 17:13 Dextrose (Dextrose 50%) STAT PRN IV Hypoglycemia 09/25/17 23:00 10/25/17 22:59 Heparin Sodium (Porcine) (Heparin 5000 units/ml) 5,000 units EVERY 12 HOURS SUBQ 09/26/17 09:00 10/26/17 08:59 Insulin Aspart (NovoLOG) BEFORE MEALS AND HS SUBQ 09/26/17 16:30 10/26/17 16:29 09/26/17 17:16 Lorazepam (Ativan 2mg/ml 1ml) 0.5 mg Q4H PRN IV For Anxiety 09/25/17 23:00 10/02/17 22:59 09/26/17 16:03 Metoprolol Tartrate (Lopressor) 50 mg DAILY ORAL 09/26/17 09:00 10/26/17 08:59 09/26/17 08:50 Morphine Sulfate (Morphine Sulfate) 1 mg EVERY 4 HOURS PRN IVP For Pain 09/25/17 23:00 10/02/17 22:59 Ondansetron HCl (Zofran) 4 mg Q6H PRN IVP Nausea & Vomiting 09/25/17 23:00 10/25/17 22:59 Polyethylene Glycol (Miralax) 17 gm HSPRN PRN ORAL Constipation 09/25/17 23:00 10/25/17 22:59 Tamsulosin HCl (Flomax) 0.4 mg BEDTIME ORAL 09/26/17 21:00 10/26/17 20:59 Zolpidem Tartrate (Ambien) 5 mg HSPRN PRN ORAL Insomnia 09/25/17 23:00 10/02/17 22:59 FARIBA GUARDADO Sep 26, 2017 21:10
[2017-09-26] MEDS: Tamsulosin 0.4mg cap ORAL SCH (21:35)
--- NOTE | 2017-09-26 22:15 | Consultation ---
DATE OF CONSULTATION: 09/26/2017 NEUROLOGICAL CONSULTATION CONSULTING PHYSICIAN: Philip Ling M.D. ATTENDING/REQUESTING PHYSICIAN: Mike Khan M.D. HISTORY OF PRESENT ILLNESS: This is a 67-year-old man presenting with progressive changes in mental status. The patient apparently has history of developmental delay with cognitive loss and history of psychiatric disorder, now became increasingly confused, which according to personnel is more than usual. He developed urinary incontinence. With this, he was brought to emergency room. His vital signs were stable. He was afebrile, although heart rate was 110. His imaging studies included CAT scan of the brain revealing progressive enlargement of ventricles and CSF space with more focal widening of CSF spaces noted in bilateral parietal consistent with old cortical infarct. There is minimal left maxillary sinus mucosal thickening. No evidence of acute abnormalities. No midline shift. This study was compared with a previous obtained in 03/2006. Chest x-ray revealed mild interstitial congestion, atelectasis possibly, small left pleural effusion. Laboratory work included mild anemia, hemoglobin 12.5 and hematocrit 40.0 with WBC 12.1. Chemistry panel, blood sugar 111, calcium 8.1. Elevated hemoglobin A1c of 6.5. Normal TSH and lipid panel, negative toxicology, and normal urinalysis. PAST MEDICAL HISTORY: The patient has history of chronic psychiatric disorder and history of benign prostatic hypertrophy. SOCIAL HISTORY: He is single, resides in a nursing facility. FAMILY HISTORY: Unavailable. REVIEW OF SYMPTOMS: The patient indicates that he is feeling well. He denies having headache or dizziness. No chest pain. No palpitations. No unilateral weakness, numbness, or tingling. He claims having good appetite. Unaware of urinary or bowel incontinence. Unaware of having strokes, TIA, or seizures. PHYSICAL EXAMINATION: GENERAL: A well-developed, well-nourished man, not in acute distress, sitting at the edge of his bed having his lunch. There is a sitter in the room. VITAL SIGNS: Now are stable. His blood pressure 105/69 and temperature 97.9 degrees. HEENT: Head normocephalic. There is no evidence of trauma. No otorrhea. No rhinorrhea. NECK: Supple. No meningeal signs. MUSCULOSKELETAL: Unremarkable. There are no deformities. Peripheral pulses 1+ and symmetric. MENTAL STATUS: The patient is alert and oriented to his name, but not age, place, or time. He is unaware why he is in this facility, but indicated he would like to go home. He is confused, disoriented. Mood is somewhat elevated. He is able to follow commands. CRANIAL NERVE II: Pupils both responding to light and accommodation. Extraocular movements intact. No nystagmus. CRANIAL NERVE V: Normal corneal responses. CRANIAL NERVE VII: No facial asymmetry. CRANIAL NERVE VIII: Normal hearing. CRANIAL NERVES IX THROUGH XII: Within normal limits. MOTOR: Normal muscle tone and strength 5/5 in all extremities. No involuntary movement. Deep tendon reflexes 1+ and symmetric with downgoing toes on both sides. SENSORY: Normal to pinprick and light touch. Gait is stable. IMPRESSION: 1. History of multiple strokes, probably , presenting with cognitive loss and intermittent psychosis. 2. Communicating hydrocephalus. 3. Benign prostatic hypertrophy. 4. Rule out diabetes. RECOMMENDATIONS: The patient to continue with current treatment which including p.r.n. Ativan, Lopressor, tamsulosin, and zolpidem. Current use of Cogentin to be postponed. The patient to continue aspirin 81 mg q.i.d. The patient will need psychiatry evaluation to address the issue of underlying psychotic features. Presence of hydrocephalus most likely ex vacuo due to multiple old strokes. Periodic interval assessment with CAT scan of the brain will be recommended to evaluate for progressive hydrocephalus. Thank you for allowing me to see this interesting patient in neurological consultation. Philip Ling M.D. DR: Albert JOB#: [id number] CC:
[2017-09-27 00:07] VITALS: BP 105/68
[2017-09-27] MEDS: LORazepam Inj 2mg/ml 1ml IV PRN ×2 (01:01→05:28)
[2017-09-27 04:07] VITALS: BP 112/75
[2017-09-27] MEDS: NovoLOG Insulin Flexpen SUBQ SCH ×4 (06:38→21:00)
--- NOTE | 2017-09-27 09:42 | Pulmonology Progress Note ---
Assessment/Plan Assessment/Plan ASSESSMENT Acute on chronic encephalopathy History of multiple strokes, presenting with cognitive loss and intermittent psychosis. Communicating hydrocephalus. Leukocytosis -resolved HTN DM PLAN OF CARE MS floor CT head no acute IC pathology urine tox screen negative, Neuro eval appreciated stop Cogentin as per neuro continue ASA lipid panel stable recommended psych eval-pending dr Gamez PT/OT/ST eval and Rx BS management with SS of insulin, [id number] at goal BP management with BB, optimize as needed UA negative, leukocytosis resolved, ID consult appreciated, monitor off abx, no signs of acute infection' supportive care case discussed and evaluated by supervising physician Subjective Allergies: Coded Allergies: No Known Allergies (Unverified , 09/25/17) Subjective denies dizziness, focal weakness no chest pain, no SOB sitter at the bedside for safety Objective Last 24 Hour Vital Signs Date Time Temp Pulse Resp B/P (MAP) Pulse Ox O2 Delivery O2 Flow Rate FiO2 09/27/17 04:07 97.7 75 22 112/75 90 Room Air 09/27/17 04:00 94 Room Air 09/27/17 00:07 97.2 63 21 105/68 94 Room Air 09/27/17 00:00 94 Room Air 09/26/17 20:07 97.3 65 21 122/74 93 Room Air 09/26/17 20:00 94 Room Air 09/26/17 16:00 97.6 18 128/77 92 Room Air 09/26/17 11:44 97.9 18 105/69 94 Room Air Intake and Output 09/26/17 09/27/17 19:00 07:00 Intake Total 960 ml 720 ml Balance 960 ml 720 ml Intake Oral 960 ml 720 ml # Voids 3 8 # Bowel Movements 1 3 General Appearance: no acute distress, other - awake, alert, depressed, responsive male with bizarre behavior in NAD HEENT: normocephalic, atraumatic, anicteric, mucous membranes moist Respiratory/Chest: lungs clear, no respiratory distress Cardiovascular: normal peripheral pulses, normal rate Abdomen: normal bowel sounds, soft, non tender Extremities: no edema, pedal pulses normal Neurologic/Psychiatric: alert, responsive Musculoskeletal: normal muscle bulk Laboratory Tests 09/27/17 04:33: Rapid Plasma Reagin [Pending] 09/27/17 04:35: Vitamin B12 Level 323, Folate 10.6, HIV (1&2) Antibody Rapid Negative Current Medications Medications (Trade) Dose Ordered Sig/Dominick Route PRN Reason Start Time Stop Time Status Last Admin Dose Admin Acetaminophen (Tylenol) 650 mg Q4H PRN ORAL fever 09/25/17 23:00 10/25/17 22:59 Al Hydroxide/Mg Hydroxide (Mylanta II) 30 ml Q6H PRN ORAL dyspepsia 09/25/17 23:00 10/25/17 22:59 Aspirin (ASA) 81 mg DAILY ORAL 09/26/17 09:00 10/26/17 08:59 09/26/17 08:49 Benztropine Mesylate (Cogentin) 2 mg BID ORAL 09/26/17 09:00 10/26/17 08:59 09/26/17 17:13 Dextrose (Dextrose 50%) STAT PRN IV Hypoglycemia 09/25/17 23:00 10/25/17 22:59 Heparin Sodium (Porcine) (Heparin 5000 units/ml) 5,000 units EVERY 12 HOURS SUBQ 09/26/17 09:00 10/26/17 08:59 09/26/17 21:36 Insulin Aspart (NovoLOG) BEFORE MEALS AND HS SUBQ 09/26/17 16:30 10/26/17 16:29 09/27/17 06:38 Lorazepam (Ativan 2mg/ml 1ml) 0.5 mg Q4H PRN IV For Anxiety 09/25/17 23:00 10/02/17 22:59 09/27/17 05:28 Metoprolol Tartrate (Lopressor) 50 mg DAILY ORAL 09/26/17 09:00 10/26/17 08:59 09/26/17 08:50 Morphine Sulfate (Morphine Sulfate) 1 mg EVERY 4 HOURS PRN IVP For Pain 09/25/17 23:00 10/02/17 22:59 Ondansetron HCl (Zofran) 4 mg Q6H PRN IVP Nausea & Vomiting 09/25/17 23:00 10/25/17 22:59 Polyethylene Glycol (Miralax) 17 gm HSPRN PRN ORAL Constipation 09/25/17 23:00 10/25/17 22:59 Tamsulosin HCl (Flomax) 0.4 mg BEDTIME ORAL 09/26/17 21:00 10/26/17 20:59 09/26/17 21:35 Zolpidem Tartrate (Ambien) 5 mg HSPRN PRN ORAL Insomnia 09/25/17 23:00 10/02/17 22:59 Aubrey ([facility])Geeta NP Sep 27, 2017 09:42
[2017-09-27] MEDS: Aspirin Baby 81mg ORAL SCH (10:10)
[2017-09-27] MEDS: Benztropine 1mg tab ORAL SCH (10:10)
[2017-09-27] MEDS: Heparin 5000 units/ml inj SUBQ SCH ×2 (10:16→20:55)
[2017-09-27] MEDS: Metoprolol Tartrate 50mg tab ORAL SCH (10:16)
[2017-09-27 12:00] VITALS: BP 103/66
--- NOTE | 2017-09-27 12:19 | Infectious Diseases Prog Note ---
Assessment/Plan Assessment/Plan Abx: None Assessment: AMS- no apparent acute infectious process, no meningismus -u/a neg -CXR: Mild interstitial congestion. Atelectasis. Possible small left pleural effusion -CT head: no acute process -TSH, Vit B12, folate normal -Hiv ab neg, RPR p Mild leukocytosis, resolved Afebrile Developmental delay BPH HTN psych disorder Plan: -Continue to monitor off abx -Neuro following -consider MRI brain, +/- LP if not improving -f/u RPR -Monitor CBC/BMP, temperatures -aspiration precautions Thank you for this consultation. Will continue to follow along with you. Discussed with RN. Subjective Allergies: Coded Allergies: No Known Allergies (Unverified , 09/25/17) Subjective afebrile no leukocytosis off abx Objective Vital Signs Last 24 Hour Vital Signs Date Time Temp Pulse Resp B/P (MAP) Pulse Ox O2 Delivery O2 Flow Rate FiO2 09/27/17 10:16 81 124/74 09/27/17 04:07 97.7 75 22 112/75 90 Room Air 09/27/17 04:00 94 Room Air 09/27/17 00:07 97.2 63 21 105/68 94 Room Air 09/27/17 00:00 94 Room Air 09/26/17 20:07 97.3 65 21 122/74 93 Room Air 09/26/17 20:00 94 Room Air 09/26/17 16:00 97.6 18 128/77 92 Room Air Height (Feet): 5 Height (Inches): 9.00 Weight (Pounds): 200 Objective General Appearance: no apparent distress, alert, other - calm but confused HEENTnormocephalic, atraumaticbilateral eye PERRL, bilateral eye EOMI moist mucus membranes Neck: normal inspection, full range of motion, supple Respiratory: normal inspection, lungs clear, normal breath sounds, no respiratory distress, no retraction, no wheezing, speaking full sentences, chest symmetrical Cardiovascular normal inspection, regular rate, rhythm, no edema Gastrointestinal: normal inspection, non tender, soft, non-distended, no guarding Genitourinary: no CVA tenderness Musculoskeletal: normal inspection, back normal, normal range of motion, non- tender Neurologic: other - aox1, moves all ext spont, good strength throughout Psychiatric: other - confused, +dev delay Skin: normal inspection, normal color, no rash, warm/dry, well hydrated, normal turgor Laboratory Tests Test 09/27/17 04:33 09/27/17 04:35 Rapid Plasma Reagin Pending Vitamin B12 Level 323 PG/ML (193-986) Folate 10.6 NG/ML (8.6-58.9) HIV (1&2) Antibody Rapid Negative (NEGATIVE) Current Medications Medications (Trade) Dose Ordered Sig/Dominick Route PRN Reason Start Time Stop Time Status Last Admin Dose Admin Acetaminophen (Tylenol) 650 mg Q4H PRN ORAL fever 09/25/17 23:00 10/25/17 22:59 Al Hydroxide/Mg Hydroxide (Mylanta II) 30 ml Q6H PRN ORAL dyspepsia 09/25/17 23:00 10/25/17 22:59 Aspirin (ASA) 81 mg DAILY ORAL 09/26/17 09:00 10/26/17 08:59 09/27/17 10:10 Benztropine Mesylate (Cogentin) 2 mg BID ORAL 09/26/17 09:00 10/26/17 08:59 09/27/17 10:10 Dextrose (Dextrose 50%) STAT PRN IV Hypoglycemia 09/25/17 23:00 10/25/17 22:59 Heparin Sodium (Porcine) (Heparin 5000 units/ml) 5,000 units EVERY 12 HOURS SUBQ 09/26/17 09:00 10/26/17 08:59 09/27/17 10:16 Insulin Aspart (NovoLOG) BEFORE MEALS AND HS SUBQ 09/26/17 16:30 10/26/17 16:29 09/27/17 12:07 Lorazepam (Ativan 2mg/ml 1ml) 0.5 mg Q4H PRN IV For Anxiety 09/25/17 23:00 10/02/17 22:59 09/27/17 05:28 Metoprolol Tartrate (Lopressor) 50 mg DAILY ORAL 09/26/17 09:00 10/26/17 08:59 09/27/17 10:16 Morphine Sulfate (Morphine Sulfate) 1 mg EVERY 4 HOURS PRN IVP For Pain 09/25/17 23:00 10/02/17 22:59 Ondansetron HCl (Zofran) 4 mg Q6H PRN IVP Nausea & Vomiting 09/25/17 23:00 10/25/17 22:59 Polyethylene Glycol (Miralax) 17 gm HSPRN PRN ORAL Constipation 09/25/17 23:00 10/25/17 22:59 Tamsulosin HCl (Flomax) 0.4 mg BEDTIME ORAL 09/26/17 21:00 10/26/17 20:59 09/26/17 21:35 Zolpidem Tartrate (Ambien) 5 mg HSPRN PRN ORAL Insomnia 09/25/17 23:00 10/02/17 22:59 Tati Apraicio M.D. Sep 27, 2017 12:18
[2017-09-27] MEDS ORDERED: LORazepam Inj 2mg/ml 1ml IM PRN (16:00)
[2017-09-27] MEDS ORDERED: Haloperidol 5mg/ml Inj IM PRN (16:00)
[2017-09-27 16:37] VITALS: BP 114/72
[2017-09-27 20:00] VITALS: BP 115/71
--- NOTE | 2017-09-27 20:15 | Consultation ---
History of Present Illness General Date patient seen: Sep 26, 2017 Chief Complaint: Altered Level of Consciousness Present Illness HPI 67-year-old man presenting with progressive changes in mental status. The patient has history of developmental delay with cognitive loss and history of psychiatric disorder, now became increasingly confuse. the pt was agitated and uncooperative. the pt is angry and uncooperative Allergies: Coded Allergies: No Known Allergies (Unverified , 09/25/17) Medication History Scheduled Aspirin* (Aspirin*), 81 MG ORAL DAILY, (Reported) Benztropine Mesylate* (Benztropine Mesylate*), 2 MG ORAL BID, (Reported) Fish Oil (Fish Oil 1,000 mg Capsule), 1,000 MG ORAL TID, (Reported) Furosemide* (Lasix*), 20 MG ORAL TWICE A DAY, (Reported) Metoprolol Tartrate* (Metoprolol Tartrate*), 50 MG ORAL DAILY, (Reported) Omeprazole (Omeprazole), 20 MG ORAL DAILY, (Reported) Tamsulosin Hcl (Tamsulosin Hcl*), 0.4 MG ORAL BEDTIME, (Reported) Vitamin D (Vitamin D3), 2,000 UNITS ORAL DAILY, (Reported) Miscellaneous Medications Ketotifen Fumarate (Ketotifen Fumarate), 5 ML OP, (Reported) [paraxetine], 40, (Reported) [respiridone], 3, (Reported) Patient History Limited by: medical condition History Provided By: Patient, Medical Record, PMD Healthcare decision maker N Resuscitation status Advanced Directive on File No Past Medical/Surgical History Past Medical/Surgical History: (1) Altered level of consciousness (2) Acute encephalopathy Review of Systems Psychiatric: Reports: prior hx, anxiety, depressed feelings Physical Exam General Appearance: no apparent distress, alert, confused, agitated Neurologic: alert, disoriented, unresponsiveness, depressed affect Last 24 Hour Vital Signs Date Time Temp Pulse Resp B/P (MAP) Pulse Ox O2 Delivery O2 Flow Rate FiO2 09/27/17 20:00 98.1 72 21 115/71 96 09/27/17 16:37 98.2 68 20 114/72 95 09/27/17 12:00 97.7 69 20 103/66 96 09/27/17 10:16 81 124/74 09/27/17 04:07 97.7 75 22 112/75 90 Room Air 09/27/17 04:00 94 Room Air 09/27/17 00:07 97.2 63 21 105/68 94 Room Air 09/27/17 00:00 94 Room Air Intake and Output 09/26/17 09/27/17 19:00 07:00 Intake Total 960 ml 720 ml Balance 960 ml 720 ml Intake Oral 960 ml 720 ml # Voids 3 8 # Bowel Movements 1 3 Laboratory Tests Test 09/27/17 04:33 09/27/17 04:35 Rapid Plasma Reagin Pending Vitamin B12 Level 323 PG/ML (193-986) Folate 10.6 NG/ML (8.6-58.9) HIV (1&2) Antibody Rapid Negative (NEGATIVE) Height (Feet): 5 Height (Inches): 9.00 Weight (Pounds): 200 Medications Current Medications Medications (Trade) Dose Ordered Sig/Dominick Route PRN Reason Start Time Stop Time Status Last Admin Dose Admin Acetaminophen (Tylenol) 650 mg Q4H PRN ORAL fever 09/25/17 23:00 10/25/17 22:59 Al Hydroxide/Mg Hydroxide (Mylanta II) 30 ml Q6H PRN ORAL dyspepsia 09/25/17 23:00 10/25/17 22:59 Aspirin (ASA) 81 mg DAILY ORAL 09/26/17 09:00 10/26/17 08:59 09/27/17 10:10 Dextrose (Dextrose 50%) STAT PRN IV Hypoglycemia 09/25/17 23:00 10/25/17 22:59 Haloperidol Lactate (Haldol) 10 mg Q6HR PRN IM Agitation 09/27/17 16:00 10/27/17 15:59 09/27/17 18:12 Heparin Sodium (Porcine) (Heparin 5000 units/ml) 5,000 units EVERY 12 HOURS SUBQ 09/26/17 09:00 10/26/17 08:59 09/27/17 10:16 Insulin Aspart (NovoLOG) BEFORE MEALS AND HS SUBQ 09/26/17 16:30 10/26/17 16:29 09/27/17 12:07 Lorazepam (Ativan 2mg/ml 1ml) 1 mg Q4HR PRN IM For Anxiety 09/27/17 16:00 10/04/17 15:59 Metoprolol Tartrate (Lopressor) 50 mg DAILY ORAL 09/26/17 09:00 10/26/17 08:59 09/27/17 10:16 Morphine Sulfate (Morphine Sulfate) 1 mg EVERY 4 HOURS PRN IVP For Pain 09/25/17 23:00 10/02/17 22:59 Ondansetron HCl (Zofran) 4 mg Q6H PRN IVP Nausea & Vomiting 09/25/17 23:00 10/25/17 22:59 Polyethylene Glycol (Miralax) 17 gm HSPRN PRN ORAL Constipation 09/25/17 23:00 10/25/17 22:59 Tamsulosin HCl (Flomax) 0.4 mg BEDTIME ORAL 09/26/17 21:00 10/26/17 20:59 09/26/17 21:35 Zolpidem Tartrate (Ambien) 5 mg HSPRN PRN ORAL Insomnia 09/25/17 23:00 10/02/17 22:59 Assessment/Plan Status: stable Assessment/Plan DD Hedy -Adeola Davis -rockyte -Adriel Abel M.D. Sep 27, 2017 20:15
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
[2017-09-27] MEDS: Zolpidem 5mg tab ORAL PRN (20:53)
[2017-09-27] MEDS: Tamsulosin 0.4mg cap ORAL SCH (20:53)
[2017-09-27] MEDS: Depakote 500mg tab ORAL SCH (21:43)
[2017-09-28] VITALS: BP 118/74
[2017-09-28 04:00] VITALS: BP 119/61
[2017-09-28] MEDS: NovoLOG Insulin Flexpen SUBQ SCH ×4 (06:12→21:02)
[2017-09-28 08:00] VITALS: BP 122/70
[2017-09-28] MEDS: Aspirin Baby 81mg ORAL SCH (09:19)
[2017-09-28] MEDS: Metoprolol Tartrate 50mg tab ORAL SCH (09:19)
[2017-09-28] MEDS: Depakote 500mg tab ORAL SCH ×2 (09:23→21:00)
[2017-09-28] MEDS: Heparin 5000 units/ml inj SUBQ SCH ×2 (09:23→21:01)
[2017-09-28 12:00] VITALS: BP 118/74
--- NOTE | 2017-09-28 12:12 | Infectious Diseases Prog Note ---
Assessment/Plan Assessment/Plan A: AMS- no apparent acute infectious process, no meningismus -u/a neg -CXR: Mild interstitial congestion. Atelectasis. Possible small left pleural effusion -CT head: no acute process -TSH, Vit B12, folate normal -Hiv ab neg, RPR Neg Mild leukocytosis, resolved Afebrile Developmental delay BPH HTN psych disorder Plan: -Continue to monitor off abx -Neuro following -consider MRI brain, +/- LP if not improving -Monitor CBC/BMP, temperatures -aspiration precautions Subjective Constitutional: Denies: no symptoms, fever, chills, fatigue, anorexia, drenching sweats, other Allergies: Coded Allergies: No Known Allergies (Unverified , 09/25/17) Objective Vital Signs Last 24 Hour Vital Signs Date Time Temp Pulse Resp B/P (MAP) Pulse Ox O2 Delivery O2 Flow Rate FiO2 09/28/17 09:19 59 119/61 09/28/17 08:00 97.3 72 18 122/70 98 Room Air 09/28/17 04:00 97.3 59 21 119/61 96 09/28/17 00:00 98.0 81 21 118/74 98 09/27/17 20:00 98.1 72 21 115/71 96 09/27/17 16:37 98.2 68 20 114/72 95 Height (Feet): 5 Height (Inches): 9.00 Weight (Pounds): 200 Respiratory/Chest: no accessory muscle use Cardiovascular: regularly irregular Abdomen: no organomegaly Laboratory Tests Test 09/28/17 04:55 Treponema pallidum Ab (FTA-ABS) Pending Current Medications Medications (Trade) Dose Ordered Sig/Dominick Route PRN Reason Start Time Stop Time Status Last Admin Dose Admin Acetaminophen (Tylenol) 650 mg Q4H PRN ORAL fever 09/25/17 23:00 10/25/17 22:59 Al Hydroxide/Mg Hydroxide (Mylanta II) 30 ml Q6H PRN ORAL dyspepsia 09/25/17 23:00 10/25/17 22:59 Aspirin (ASA) 81 mg DAILY ORAL 09/26/17 09:00 10/26/17 08:59 09/28/17 09:19 Dextrose (Dextrose 50%) STAT PRN IV Hypoglycemia 09/25/17 23:00 10/25/17 22:59 Divalproex Sodium (Depakote) 500 mg EVERY 12 HOURS ORAL 09/27/17 21:00 10/27/17 20:59 09/28/17 09:23 Haloperidol Lactate (Haldol) 10 mg Q6HR PRN IM Agitation 09/27/17 16:00 10/27/17 15:59 09/27/17 18:12 Heparin Sodium (Porcine) (Heparin 5000 units/ml) 5,000 units EVERY 12 HOURS SUBQ 09/26/17 09:00 10/26/17 08:59 09/28/17 09:23 Insulin Aspart (NovoLOG) BEFORE MEALS AND HS SUBQ 09/26/17 16:30 10/26/17 16:29 09/28/17 06:12 Lorazepam (Ativan 2mg/ml 1ml) 1 mg Q4HR PRN IM For Anxiety 09/27/17 16:00 10/04/17 15:59 Metoprolol Tartrate (Lopressor) 50 mg DAILY ORAL 09/26/17 09:00 10/26/17 08:59 09/28/17 09:19 Morphine Sulfate (Morphine Sulfate) 1 mg EVERY 4 HOURS PRN IVP For Pain 09/25/17 23:00 10/02/17 22:59 Ondansetron HCl (Zofran) 4 mg Q6H PRN IVP Nausea & Vomiting 09/25/17 23:00 10/25/17 22:59 Polyethylene Glycol (Miralax) 17 gm HSPRN PRN ORAL Constipation 09/25/17 23:00 10/25/17 22:59 Risperidone (RisperDAL) 2 mg BEDTIME ORAL 09/27/17 21:00 10/27/17 20:59 09/27/17 21:43 Tamsulosin HCl (Flomax) 0.4 mg BEDTIME ORAL 09/26/17 21:00 10/26/17 20:59 09/27/17 20:53 Zolpidem Tartrate (Ambien) 5 mg HSPRN PRN ORAL Insomnia 09/25/17 23:00 10/02/17 22:59 09/27/17 20:53 OLIVER NICOLAS M.D. Sep 28, 2017 12:12
--- NOTE | 2017-09-28 13:00 | Pulmonology Progress Note ---
Assessment/Plan Assessment/Plan ASSESSMENT Acute on chronic encephalopathy History of multiple strokes, presenting with cognitive loss and intermittent psychosis. Communicating hydrocephalus. Leukocytosis -resolved HTN DM DD agitation PLAN OF CARE MS floor CT head no acute IC pathology urine tox screen negative, Neuro eval appreciated stop Cogentin as per neuro continue ASA lipid panel stable psych eval appreciated PT/OT/ST eval and Rx BS management with SS of insulin, [id number] at goal BP management with BB, optimize as needed UA negative, leukocytosis resolved, ID consult appreciated, monitor off abx, no signs of acute infection' supportive care dc plan if cleared by psych case discussed and evaluated by supervising physician Subjective Allergies: Coded Allergies: No Known Allergies (Unverified , 09/25/17) Subjective denies dizziness, focal weakness no chest pain, no SOB sitter at the bedside for safety Objective Last 24 Hour Vital Signs Date Time Temp Pulse Resp B/P (MAP) Pulse Ox O2 Delivery O2 Flow Rate FiO2 09/28/17 12:00 97.4 76 20 118/74 96 Room Air 09/28/17 09:19 59 119/61 09/28/17 08:00 97.3 72 18 122/70 98 Room Air 09/28/17 04:00 97.3 59 21 119/61 96 09/28/17 00:00 98.0 81 21 118/74 98 09/27/17 20:00 98.1 72 21 115/71 96 09/27/17 16:37 98.2 68 20 114/72 95 Intake and Output 09/27/17 09/28/17 19:00 07:00 Intake Total 360 ml Balance 360 ml Intake Oral 360 ml Objective General Appearance: no acute distress, other - awake, alert, agitated , responsive male with bizarre behavior in NAD HEENT: normocephalic, atraumatic, anicteric, mucous membranes moist Respiratory/Chest: lungs clear, no respiratory distress Cardiovascular: normal peripheral pulses, normal rate Abdomen: normal bowel sounds, soft, non tender Extremities: no edema, pedal pulses normal Neurologic/Psychiatric: alert, responsive Musculoskeletal: normal muscle bulk Laboratory Tests 09/28/17 04:55: Treponema pallidum Ab (FTA-ABS) [Pending] Current Medications Medications (Trade) Dose Ordered Sig/Dominick Route PRN Reason Start Time Stop Time Status Last Admin Dose Admin Acetaminophen (Tylenol) 650 mg Q4H PRN ORAL fever 09/25/17 23:00 10/25/17 22:59 Al Hydroxide/Mg Hydroxide (Mylanta II) 30 ml Q6H PRN ORAL dyspepsia 09/25/17 23:00 10/25/17 22:59 Aspirin (ASA) 81 mg DAILY ORAL 09/26/17 09:00 10/26/17 08:59 09/28/17 09:19 Dextrose (Dextrose 50%) STAT PRN IV Hypoglycemia 09/25/17 23:00 10/25/17 22:59 Divalproex Sodium (Depakote) 500 mg EVERY 12 HOURS ORAL 09/27/17 21:00 10/27/17 20:59 09/28/17 09:23 Haloperidol Lactate (Haldol) 10 mg Q6HR PRN IM Agitation 09/27/17 16:00 10/27/17 15:59 09/27/17 18:12 Heparin Sodium (Porcine) (Heparin 5000 units/ml) 5,000 units EVERY 12 HOURS SUBQ 09/26/17 09:00 10/26/17 08:59 09/28/17 09:23 Insulin Aspart (NovoLOG) BEFORE MEALS AND HS SUBQ 09/26/17 16:30 10/26/17 16:29 09/28/17 06:12 Lorazepam (Ativan 2mg/ml 1ml) 1 mg Q4HR PRN IM For Anxiety 09/27/17 16:00 10/04/17 15:59 Metoprolol Tartrate (Lopressor) 50 mg DAILY ORAL 09/26/17 09:00 10/26/17 08:59 09/28/17 09:19 Morphine Sulfate (Morphine Sulfate) 1 mg EVERY 4 HOURS PRN IVP For Pain 09/25/17 23:00 10/02/17 22:59 Ondansetron HCl (Zofran) 4 mg Q6H PRN IVP Nausea & Vomiting 09/25/17 23:00 10/25/17 22:59 Polyethylene Glycol (Miralax) 17 gm HSPRN PRN ORAL Constipation 09/25/17 23:00 10/25/17 22:59 Risperidone (RisperDAL) 2 mg BEDTIME ORAL 09/27/17 21:00 10/27/17 20:59 09/27/17 21:43 Tamsulosin HCl (Flomax) 0.4 mg BEDTIME ORAL 09/26/17 21:00 10/26/17 20:59 09/27/17 20:53 Zolpidem Tartrate (Ambien) 5 mg HSPRN PRN ORAL Insomnia 09/25/17 23:00 10/02/17 22:59 09/27/17 20:53 Aubrey ([facility])Geeta NP Sep 28, 2017 13:00
[2017-09-28 16:00] VITALS: BP 122/68
[2017-09-28 20:01] VITALS: BP 101/56
[2017-09-28] MEDS: Tamsulosin 0.4mg cap ORAL SCH (20:59)
[2017-09-28] MEDS: Zolpidem 5mg tab ORAL PRN (21:53)
[2017-09-29] VITALS: BP 106/47
[2017-09-29 04:00] VITALS: BP 108/59
[2017-09-29] MEDS: NovoLOG Insulin Flexpen SUBQ SCH ×4 (06:05→21:27)
[2017-09-29 08:00] VITALS: BP 112/62
[2017-09-29] MEDS: Aspirin Baby 81mg ORAL SCH (09:06)
[2017-09-29] MEDS: Depakote 500mg tab ORAL SCH ×2 (09:07→21:24)
[2017-09-29] MEDS: Metoprolol Tartrate 50mg tab ORAL SCH (09:07)
[2017-09-29] MEDS: Heparin 5000 units/ml inj SUBQ SCH ×2 (09:10→21:26)
[2017-09-29 11:40] VITALS: BP 108/63
--- NOTE | 2017-09-29 14:27 | General Progress Note ---
Assessment/Plan Status: stable Assessment/Plan DD agitation -risperdal -depakote -haldol IM Subjective Date patient seen: Sep 28, 2017 Neurologic/Psychiatric: Reports: anxiety, emotional problems Allergies: Coded Allergies: No Known Allergies (Unverified , 09/25/17) Subjective the pt is less agitated and angry Objective Last 24 Hour Vital Signs Date Time Temp Pulse Resp B/P (MAP) Pulse Ox O2 Delivery O2 Flow Rate FiO2 09/29/17 11:40 97.7 65 20 108/63 96 09/29/17 09:07 68 118/76 09/29/17 08:00 97.2 68 22 112/62 94 Room Air 09/29/17 04:00 96.8 60 20 108/59 94 Room Air 09/29/17 00:00 96.9 75 20 106/47 92 Room Air 09/28/17 20:01 97.0 66 20 101/56 93 Room Air 09/28/17 16:00 97.4 82 22 122/68 98 Room Air Height (Feet): 5 Height (Inches): 9.00 Weight (Pounds): 200 General Appearance: no apparent distress, alert, confused, agitated Adriel Royal M.D. Sep 29, 2017 14:27
--- NOTE | 2017-09-29 16:05 | Pulmonology Progress Note ---
Assessment/Plan Assessment/Plan ASSESSMENT Acute on chronic encephalopathy History of multiple strokes, presenting with cognitive loss and intermittent psychosis. Communicating hydrocephalus. Leukocytosis -resolved HTN DM DD agitation PLAN OF CARE MS floor CT head no acute IC pathology urine tox screen negative, Neuro eval appreciated stopped Cogentin as per neuro continue ASA lipid panel stable psych follows PT/OT/ST eval and Rx BS management with SS of insulin, [id number] at goal BP management with BB, optimize as needed UA negative, leukocytosis resolved, ID consult appreciated, monitor off abx, no signs of acute infection' supportive care dc plan if cleared by psych ( ? safe to go home) dc partner integration planner consult case discussed and evaluated by supervising physician Subjective Allergies: Coded Allergies: No Known Allergies (Unverified , 09/25/17) Subjective denies dizziness, focal weakness no chest pain, no SOB sitter at the bedside for safety Objective Last 24 Hour Vital Signs Date Time Temp Pulse Resp B/P (MAP) Pulse Ox O2 Delivery O2 Flow Rate FiO2 09/29/17 11:40 97.7 65 20 108/63 96 09/29/17 09:07 68 118/76 09/29/17 08:00 97.2 68 22 112/62 94 Room Air 09/29/17 04:00 96.8 60 20 108/59 94 Room Air 09/29/17 00:00 96.9 75 20 106/47 92 Room Air 09/28/17 20:01 97.0 66 20 101/56 93 Room Air Objective General Appearance: no acute distress, awake, alert, responsive agitated male with bizarre behavior in NAD HEENT: normocephalic, atraumatic, anicteric, mucous membranes moist Respiratory/Chest: lungs clear, no respiratory distress Cardiovascular: normal peripheral pulses, normal rate Abdomen: normal bowel sounds, soft, non tender Extremities: no edema, pedal pulses normal Neurologic/Psychiatric: alert, responsive Musculoskeletal: normal muscle bulk Current Medications Medications (Trade) Dose Ordered Sig/Dominick Route PRN Reason Start Time Stop Time Status Last Admin Dose Admin Acetaminophen (Tylenol) 650 mg Q4H PRN ORAL fever 09/25/17 23:00 10/25/17 22:59 Al Hydroxide/Mg Hydroxide (Mylanta II) 30 ml Q6H PRN ORAL dyspepsia 09/25/17 23:00 10/25/17 22:59 Aspirin (ASA) 81 mg DAILY ORAL 09/26/17 09:00 10/26/17 08:59 09/29/17 09:06 Dextrose (Dextrose 50%) STAT PRN IV Hypoglycemia 09/25/17 23:00 10/25/17 22:59 Divalproex Sodium (Depakote) 500 mg EVERY 12 HOURS ORAL 09/27/17 21:00 10/27/17 20:59 09/29/17 09:07 Haloperidol Lactate (Haldol) 10 mg Q6HR PRN IM Agitation 09/27/17 16:00 10/27/17 15:59 09/27/17 18:12 Heparin Sodium (Porcine) (Heparin 5000 units/ml) 5,000 units EVERY 12 HOURS SUBQ 09/26/17 09:00 10/26/17 08:59 09/29/17 09:10 Insulin Aspart (NovoLOG) BEFORE MEALS AND HS SUBQ 09/26/17 16:30 10/26/17 16:29 09/29/17 11:30 Lorazepam (Ativan 2mg/ml 1ml) 1 mg Q4HR PRN IM For Anxiety 09/27/17 16:00 10/04/17 15:59 Metoprolol Tartrate (Lopressor) 50 mg DAILY ORAL 09/26/17 09:00 10/26/17 08:59 09/29/17 09:07 Morphine Sulfate (Morphine Sulfate) 1 mg EVERY 4 HOURS PRN IVP For Pain 09/25/17 23:00 10/02/17 22:59 Ondansetron HCl (Zofran) 4 mg Q6H PRN IVP Nausea & Vomiting 09/25/17 23:00 10/25/17 22:59 Polyethylene Glycol (Miralax) 17 gm HSPRN PRN ORAL Constipation 09/25/17 23:00 10/25/17 22:59 Risperidone (RisperDAL) 2 mg BEDTIME ORAL 09/27/17 21:00 10/27/17 20:59 09/28/17 21:00 Tamsulosin HCl (Flomax) 0.4 mg BEDTIME ORAL 09/26/17 21:00 10/26/17 20:59 09/28/17 20:59 Zolpidem Tartrate (Ambien) 5 mg HSPRN PRN ORAL Insomnia 09/25/17 23:00 10/02/17 22:59 09/28/17 21:53 Aubrey ([facility])Geeta NP Sep 29, 2017 16:05
[2017-09-29 16:23] VITALS: BP 114/68
[2017-09-29 20:00] VITALS: BP 146/71
[2017-09-29] MEDS: Tamsulosin 0.4mg cap ORAL SCH (21:24)
[2017-09-30] VITALS: BP 142/74
[2017-09-30 04:00] VITALS: BP 141/72
[2017-09-30] MEDS: NovoLOG Insulin Flexpen SUBQ SCH ×4 (06:09→21:00)
[2017-09-30 08:00] VITALS: BP 166/85
[2017-09-30] MEDS: Metoprolol Tartrate 50mg tab ORAL SCH (08:56)
[2017-09-30] MEDS: Aspirin Baby 81mg ORAL SCH (08:56)
[2017-09-30] MEDS: Depakote 500mg tab ORAL SCH ×2 (08:56→20:48)
[2017-09-30] MEDS: Heparin 5000 units/ml inj SUBQ SCH ×2 (09:05→21:00)
--- NOTE | 2017-09-30 11:22 | Infectious Diseases Prog Note ---
Assessment/Plan Assessment/Plan AMS- no apparent acute infectious process, no meningismus -u/a neg -CXR: Mild interstitial congestion. Atelectasis. Possible small left pleural effusion -CT head: no acute process -TSH, Vit B12, folate normal -Hiv ab neg, RPR Neg ; TPPA p Mild leukocytosis, resolved Afebrile Developmental delay BPH HTN psych disorder Plan: -Continue to monitor off abx -Neuro following -consider MRI brain, +/- LP if not improving -Monitor CBC/BMP, temperatures -aspiration precautions Subjective Allergies: Coded Allergies: No Known Allergies (Unverified , 09/25/17) Subjective afebrile no leukocytosis off abx Objective Vital Signs Last 24 Hour Vital Signs Date Time Temp Pulse Resp B/P (MAP) Pulse Ox O2 Delivery O2 Flow Rate FiO2 09/30/17 08:56 67 166/85 09/30/17 08:00 98.2 67 20 166/85 100 Room Air 09/30/17 04:00 97.9 74 19 141/72 94 Room Air 09/30/17 00:00 97.3 70 20 142/74 95 Room Air 09/29/17 20:00 98.1 75 20 146/71 95 Room Air 09/29/17 16:23 97.6 70 20 114/68 96 09/29/17 11:40 97.7 65 20 108/63 96 Height (Feet): 5 Height (Inches): 9.00 Weight (Pounds): 200 Objective General Appearance: no apparent distress, alert, other - calm but confused HEENTnormocephalic, atraumaticbilateral eye PERRL, bilateral eye EOMI moist mucus membranes Neck: normal inspection, full range of motion, supple Respiratory: normal inspection, lungs clear, normal breath sounds, no respiratory distress, no retraction, no wheezing, speaking full sentences, chest symmetrical Cardiovascular normal inspection, regular rate, rhythm, no edema Gastrointestinal: normal inspection, non tender, soft, non-distended, no guarding Genitourinary: no CVA tenderness Musculoskeletal: normal inspection, back normal, normal range of motion, non- tender Neurologic: other - aox1, moves all ext spont, good strength throughout Psychiatric: other - confused, +dev delay Skin: normal inspection, normal color, no rash, warm/dry, well hydrated, normal turgor Current Medications Medications (Trade) Dose Ordered Sig/Dominick Route PRN Reason Start Time Stop Time Status Last Admin Dose Admin Acetaminophen (Tylenol) 650 mg Q4H PRN ORAL fever 09/25/17 23:00 10/25/17 22:59 Al Hydroxide/Mg Hydroxide (Mylanta II) 30 ml Q6H PRN ORAL dyspepsia 09/25/17 23:00 10/25/17 22:59 Aspirin (ASA) 81 mg DAILY ORAL 09/26/17 09:00 10/26/17 08:59 09/30/17 08:56 Dextrose (Dextrose 50%) STAT PRN IV Hypoglycemia 09/25/17 23:00 10/25/17 22:59 Divalproex Sodium (Depakote) 500 mg EVERY 12 HOURS ORAL 09/27/17 21:00 10/27/17 20:59 09/30/17 08:56 Haloperidol Lactate (Haldol) 10 mg Q6HR PRN IM Agitation 09/27/17 16:00 10/27/17 15:59 09/27/17 18:12 Heparin Sodium (Porcine) (Heparin 5000 units/ml) 5,000 units EVERY 12 HOURS SUBQ 09/26/17 09:00 10/26/17 08:59 09/30/17 09:05 Insulin Aspart (NovoLOG) BEFORE MEALS AND HS SUBQ 09/26/17 16:30 10/26/17 16:29 09/29/17 21:27 Lorazepam (Ativan 2mg/ml 1ml) 1 mg Q4HR PRN IM For Anxiety 09/27/17 16:00 10/04/17 15:59 Metoprolol Tartrate (Lopressor) 50 mg DAILY ORAL 09/26/17 09:00 10/26/17 08:59 09/30/17 08:56 Morphine Sulfate (Morphine Sulfate) 1 mg EVERY 4 HOURS PRN IVP For Pain 09/25/17 23:00 10/02/17 22:59 Ondansetron HCl (Zofran) 4 mg Q6H PRN IVP Nausea & Vomiting 09/25/17 23:00 10/25/17 22:59 Polyethylene Glycol (Miralax) 17 gm HSPRN PRN ORAL Constipation 09/25/17 23:00 10/25/17 22:59 Risperidone (RisperDAL) 2 mg BEDTIME ORAL 09/27/17 21:00 10/27/17 20:59 09/29/17 21:24 Tamsulosin HCl (Flomax) 0.4 mg BEDTIME ORAL 09/26/17 21:00 10/26/17 20:59 09/29/17 21:24 Zolpidem Tartrate (Ambien) 5 mg HSPRN PRN ORAL Insomnia 09/25/17 23:00 10/02/17 22:59 09/28/17 21:53 Tati Aparicio M.D. Sep 30, 2017 11:22
[2017-09-30 12:04] VITALS: BP 134/83
[2017-09-30 20:00] VITALS: BP 131/59
[2017-09-30] MEDS: Tamsulosin 0.4mg cap ORAL SCH (20:48)
--- NOTE | 2017-09-30 22:59 | Pulmonology Progress Note ---
Assessment/Plan Problems: (1) Acute encephalopathy Assessment/Plan neuro and ID consults reviewed f/u neuro evaluation psych evaluation Subjective Allergies: Coded Allergies: No Known Allergies (Unverified , 09/25/17) Objective Last 24 Hour Vital Signs Date Time Temp Pulse Resp B/P (MAP) Pulse Ox O2 Delivery O2 Flow Rate FiO2 09/30/17 12:04 98.1 70 18 134/83 96 Room Air 09/30/17 08:56 67 166/85 09/30/17 08:00 98.2 67 20 166/85 100 Room Air 09/30/17 04:00 97.9 74 19 141/72 94 Room Air 09/30/17 00:00 97.3 70 20 142/74 95 Room Air Objective General Appearance: no acute distress HEENT: normocephalic, atraumatic Respiratory/Chest: lungs clear, no respiratory distress, no accessory muscle use Cardiovascular: normal rate, no JVD, CL-femoral intact Abdomen: normal bowel sounds, soft, non tender Extremities: no edema Neurologic/Psychiatric: alert, responsive Musculoskeletal: normal muscle bulk Current Medications Medications (Trade) Dose Ordered Sig/Dominick Route PRN Reason Start Time Stop Time Status Last Admin Dose Admin Acetaminophen (Tylenol) 650 mg Q4H PRN ORAL fever 09/25/17 23:00 10/25/17 22:59 Al Hydroxide/Mg Hydroxide (Mylanta II) 30 ml Q6H PRN ORAL dyspepsia 09/25/17 23:00 10/25/17 22:59 Aspirin (ASA) 81 mg DAILY ORAL 09/26/17 09:00 10/26/17 08:59 09/30/17 08:56 Dextrose (Dextrose 50%) STAT PRN IV Hypoglycemia 09/25/17 23:00 10/25/17 22:59 Divalproex Sodium (Depakote) 500 mg EVERY 12 HOURS ORAL 09/27/17 21:00 10/27/17 20:59 09/30/17 20:48 Haloperidol Lactate (Haldol) 10 mg Q6HR PRN IM Agitation 09/27/17 16:00 10/27/17 15:59 09/27/17 18:12 Heparin Sodium (Porcine) (Heparin 5000 units/ml) 5,000 units EVERY 12 HOURS SUBQ 09/26/17 09:00 10/26/17 08:59 09/30/17 21:00 Insulin Aspart (NovoLOG) BEFORE MEALS AND HS SUBQ 09/26/17 16:30 10/26/17 16:29 09/30/17 16:42 Lorazepam (Ativan 2mg/ml 1ml) 1 mg Q4HR PRN IM For Anxiety 09/27/17 16:00 10/04/17 15:59 Metoprolol Tartrate (Lopressor) 50 mg DAILY ORAL 09/26/17 09:00 10/26/17 08:59 09/30/17 08:56 Morphine Sulfate (Morphine Sulfate) 1 mg EVERY 4 HOURS PRN IVP For Pain 09/25/17 23:00 10/02/17 22:59 Ondansetron HCl (Zofran) 4 mg Q6H PRN IVP Nausea & Vomiting 09/25/17 23:00 10/25/17 22:59 Polyethylene Glycol (Miralax) 17 gm HSPRN PRN ORAL Constipation 09/25/17 23:00 10/25/17 22:59 Risperidone (RisperDAL) 2 mg BEDTIME ORAL 09/27/17 21:00 10/27/17 20:59 09/30/17 20:48 Tamsulosin HCl (Flomax) 0.4 mg BEDTIME ORAL 09/26/17 21:00 10/26/17 20:59 09/30/17 20:48 Zolpidem Tartrate (Ambien) 5 mg HSPRN PRN ORAL Insomnia 09/25/17 23:00 10/02/17 22:59 09/28/17 21:53 FARIBA GUARDADO Sep 30, 2017 22:59
[2017-10-01] VITALS: BP 116/61
[2017-10-01] MEDS: NovoLOG Insulin Flexpen SUBQ SCH ×2 (06:20→11:30)
[2017-10-01] MEDS: Aspirin Baby 81mg ORAL SCH (08:58)
[2017-10-01] MEDS: Depakote 500mg tab ORAL SCH (08:58)
[2017-10-01] MEDS: Metoprolol Tartrate 50mg tab ORAL SCH (08:59)
[2017-10-01] MEDS: Heparin 5000 units/ml inj SUBQ SCH (09:00)
[2017-10-01] MEDS ORDERED: DIVALPROEX SOD500 MG PO (11:05)
[2017-10-01] MEDS ORDERED: RISPERDAL2 MG ORAL (11:07)
[2017-10-01] MEDS ORDERED: NOVOLOG100 UNIT/4 SQ (11:29)
[2017-10-01 11:51] VITALS: BP 137/75
--- NOTE | 2017-10-01 12:26 | Infectious Diseases Prog Note ---
Assessment/Plan Assessment/Plan AMS- no apparent acute infectious process, no meningismus -u/a neg -CXR: Mild interstitial congestion. Atelectasis. Possible small left pleural effusion -CT head: no acute process -TSH, Vit B12, folate normal -Hiv ab neg, RPR Neg ; TPPA p Mild leukocytosis, resolved Afebrile Developmental delay BPH HTN psych disorder Plan: -Continue to monitor off abx -Neuro following -consider MRI brain, +/- LP if not improving -Monitor CBC/BMP, temperatures -aspiration precautions Subjective Allergies: Coded Allergies: No Known Allergies (Unverified , 09/25/17) Subjective afebrile no leukocytosis off abx Objective Vital Signs Last 24 Hour Vital Signs Date Time Temp Pulse Resp B/P (MAP) Pulse Ox O2 Delivery O2 Flow Rate FiO2 10/01/17 11:51 98.2 75 20 137/75 96 Room Air 10/01/17 08:59 68 139/71 10/01/17 00:00 98.1 59 21 116/61 97 09/30/17 20:00 98.3 65 21 131/59 92 Height (Feet): 5 Height (Inches): 9.00 Weight (Pounds): 200 Objective General Appearance: no apparent distress, alert, other - calm but confused HEENTnormocephalic, atraumaticbilateral eye PERRL, bilateral eye EOMI moist mucus membranes Neck: normal inspection, full range of motion, supple Respiratory: normal inspection, lungs clear, normal breath sounds, no respiratory distress, no retraction, no wheezing, speaking full sentences, chest symmetrical Cardiovascular normal inspection, regular rate, rhythm, no edema Gastrointestinal: normal inspection, non tender, soft, non-distended, no guarding Genitourinary: no CVA tenderness Musculoskeletal: normal inspection, back normal, normal range of motion, non- tender Neurologic: other - aox1, moves all ext spont, good strength throughout Psychiatric: other - confused, +dev delay Skin: normal inspection, normal color, no rash, warm/dry, well hydrated, normal turgor Current Medications Medications (Trade) Dose Ordered Sig/Dominick Route PRN Reason Start Time Stop Time Status Last Admin Dose Admin Acetaminophen (Tylenol) 650 mg Q4H PRN ORAL fever 09/25/17 23:00 10/25/17 22:59 Al Hydroxide/Mg Hydroxide (Mylanta II) 30 ml Q6H PRN ORAL dyspepsia 09/25/17 23:00 10/25/17 22:59 Aspirin (ASA) 81 mg DAILY ORAL 09/26/17 09:00 10/26/17 08:59 10/01/17 08:58 Dextrose (Dextrose 50%) STAT PRN IV Hypoglycemia 09/25/17 23:00 10/25/17 22:59 Divalproex Sodium (Depakote) 500 mg EVERY 12 HOURS ORAL 09/27/17 21:00 10/27/17 20:59 10/01/17 08:58 Haloperidol Lactate (Haldol) 10 mg Q6HR PRN IM Agitation 09/27/17 16:00 10/27/17 15:59 09/27/17 18:12 Heparin Sodium (Porcine) (Heparin 5000 units/ml) 5,000 units EVERY 12 HOURS SUBQ 09/26/17 09:00 10/26/17 08:59 09/30/17 21:00 Insulin Aspart (NovoLOG) BEFORE MEALS AND HS SUBQ 09/26/17 16:30 10/26/17 16:29 09/30/17 16:42 Lorazepam (Ativan 2mg/ml 1ml) 1 mg Q4HR PRN IM For Anxiety 09/27/17 16:00 10/04/17 15:59 Metoprolol Tartrate (Lopressor) 50 mg DAILY ORAL 09/26/17 09:00 10/26/17 08:59 10/01/17 08:59 Morphine Sulfate (Morphine Sulfate) 1 mg EVERY 4 HOURS PRN IVP For Pain 09/25/17 23:00 10/02/17 22:59 Ondansetron HCl (Zofran) 4 mg Q6H PRN IVP Nausea & Vomiting 09/25/17 23:00 10/25/17 22:59 Polyethylene Glycol (Miralax) 17 gm HSPRN PRN ORAL Constipation 09/25/17 23:00 10/25/17 22:59 Risperidone (RisperDAL) 2 mg BEDTIME ORAL 09/27/17 21:00 10/27/17 20:59 09/30/17 20:48 Tamsulosin HCl (Flomax) 0.4 mg BEDTIME ORAL 09/26/17 21:00 10/26/17 20:59 09/30/17 20:48 Zolpidem Tartrate (Ambien) 5 mg HSPRN PRN ORAL Insomnia 09/25/17 23:00 10/02/17 22:59 09/28/17 21:53 Tati Aparicio M.D. Oct 01, 2017 12:26
--- NOTE | 2017-10-01 12:56 | Pulmonology Progress Note ---
Assessment/Plan Problems: (1) Acute encephalopathy Assessment/Plan neuro and ID consults reviewed f/u neuro evaluation psych evaluation Subjective Allergies: Coded Allergies: No Known Allergies (Unverified , 09/25/17) Objective Last 24 Hour Vital Signs Date Time Temp Pulse Resp B/P (MAP) Pulse Ox O2 Delivery O2 Flow Rate FiO2 10/01/17 11:51 98.2 75 20 137/75 96 Room Air 10/01/17 08:59 68 139/71 10/01/17 00:00 98.1 59 21 116/61 97 09/30/17 20:00 98.3 65 21 131/59 92 Objective General Appearance: no acute distress HEENT: normocephalic, atraumatic Respiratory/Chest: lungs clear, no respiratory distress, no accessory muscle use Cardiovascular: normal rate, no JVD, CL-femoral intact Abdomen: normal bowel sounds, soft, non tender Extremities: no edema Neurologic/Psychiatric: alert, responsive Musculoskeletal: normal muscle bulk Current Medications Medications (Trade) Dose Ordered Sig/Dominick Route PRN Reason Start Time Stop Time Status Last Admin Dose Admin Acetaminophen (Tylenol) 650 mg Q4H PRN ORAL fever 09/25/17 23:00 10/25/17 22:59 Al Hydroxide/Mg Hydroxide (Mylanta II) 30 ml Q6H PRN ORAL dyspepsia 09/25/17 23:00 10/25/17 22:59 Aspirin (ASA) 81 mg DAILY ORAL 09/26/17 09:00 10/26/17 08:59 10/01/17 08:58 Dextrose (Dextrose 50%) STAT PRN IV Hypoglycemia 09/25/17 23:00 10/25/17 22:59 Divalproex Sodium (Depakote) 500 mg EVERY 12 HOURS ORAL 09/27/17 21:00 10/27/17 20:59 10/01/17 08:58 Haloperidol Lactate (Haldol) 10 mg Q6HR PRN IM Agitation 09/27/17 16:00 10/27/17 15:59 09/27/17 18:12 Heparin Sodium (Porcine) (Heparin 5000 units/ml) 5,000 units EVERY 12 HOURS SUBQ 09/26/17 09:00 10/26/17 08:59 09/30/17 21:00 Insulin Aspart (NovoLOG) BEFORE MEALS AND HS SUBQ 09/26/17 16:30 10/26/17 16:29 09/30/17 16:42 Lorazepam (Ativan 2mg/ml 1ml) 1 mg Q4HR PRN IM For Anxiety 09/27/17 16:00 10/04/17 15:59 Metoprolol Tartrate (Lopressor) 50 mg DAILY ORAL 09/26/17 09:00 10/26/17 08:59 10/01/17 08:59 Morphine Sulfate (Morphine Sulfate) 1 mg EVERY 4 HOURS PRN IVP For Pain 09/25/17 23:00 10/02/17 22:59 Ondansetron HCl (Zofran) 4 mg Q6H PRN IVP Nausea & Vomiting 09/25/17 23:00 10/25/17 22:59 Polyethylene Glycol (Miralax) 17 gm HSPRN PRN ORAL Constipation 09/25/17 23:00 10/25/17 22:59 Risperidone (RisperDAL) 2 mg BEDTIME ORAL 09/27/17 21:00 10/27/17 20:59 09/30/17 20:48 Tamsulosin HCl (Flomax) 0.4 mg BEDTIME ORAL 09/26/17 21:00 10/26/17 20:59 09/30/17 20:48 Zolpidem Tartrate (Ambien) 5 mg HSPRN PRN ORAL Insomnia 09/25/17 23:00 10/02/17 22:59 09/28/17 21:53 FARIBA GUARDADO Oct 01, 2017 12:56
--- NOTE | 2017-10-01 15:48 | General Progress Note ---
Assessment/Plan Status: stable, progressing Assessment/Plan DD agitation -risperdal -depakote -haldol IM Subjective Date patient seen: Sep 30, 2017 Neurologic/Psychiatric: Reports: anxiety, depressed, emotional problems Allergies: Coded Allergies: No Known Allergies (Unverified , 09/25/17) Subjective the pt is less agitated and angry Objective Last 24 Hour Vital Signs Date Time Temp Pulse Resp B/P (MAP) Pulse Ox O2 Delivery O2 Flow Rate FiO2 10/01/17 11:51 98.2 75 20 137/75 96 Room Air 10/01/17 08:59 68 139/71 10/01/17 00:00 98.1 59 21 116/61 97 09/30/17 20:00 98.3 65 21 131/59 92 Height (Feet): 5 Height (Inches): 9.00 Weight (Pounds): 200 General Appearance: no apparent distress, alert, confused Neurologic: alert, responsive, depressed affect Adriel Royal M.D. Oct 01, 2017 15:48
--- NOTE | 2017-10-02 09:43 | Progress Note ---
DATE: 10/01/2017 SUBJECTIVE: The patient is calm and cooperative, no behavior issues. He is still confused and is not able to be engaged during evaluation, easily agitated. He still has a sitter. The patient still not responding to my questions and laughing inappropriately. MENTAL STATUS EXAMINATION: The patient is alert, confused, not able to be engaged during the evaluation. Mood is neutral. Affect is constricted. Congruent mood. Thought process is concrete. Thought content, no suicidal or homicidal ideation. ASSESSMENT: 1. Developmentally delayed. 2. Agitation. 3. Mood lability. PLAN: 1. We will continue the current medication. 2. We will continue to follow and readjust the medications. Adriel Royal M.D. DR: Baron JOB#: [id number] CC:
--- NOTE | 2017-10-03 16:47 | Discharge Summary ---
Discharge Summary Hospital Course Date of Admission Sep 25, 2017 at 22:57 Date of Discharge Oct 01, 2017 at 13:19 Admitting Diagnosis ALT. MENTAL STATUS HPI Serge Colmenares is a 67 year old male who was admitted on Sep 25, 2017 at 22:57 for Altered Mental Status Hospital Course [id number] Discharge Discharge Disposition Patient was discharged to [facility] (01) Discharge Diagnoses: Shawna Sanders NP Oct 03, 2017 16:47
--- NOTE | 2017-10-04 03:30 | Discharge Summary 2 SIG ---
DATE OF ADMISSION: 09/25/2017 DATE OF DISCHARGE: 10/01/2017 CONSULTANTS: 1. Adriel Royal M.D. 2. Tati Aparicio M.D. 3. Philip Ling M.D. BRIEF HOSPITAL COURSE: The patient is a 67-year-old male with history of mental retardation. He was brought in by paramedics due to acute confusion. The patient was more altered than his usual. On evaluation at ED, head CT was negative. The patient was afebrile. There was no nuchal rigidity. Chest x-ray done showed mild pulmonary vascular congestion, no consolidation, no effusion. EKG was in normal sinus rhythm. He was admitted for acute encephalopathy and was provided sitter for the patient's safety. He underwent neurological evaluation. CAT scan of the brain showed progressive enlargement of ventricles and CSF space with more focal widening of CSF noted in bilateral parietal consistent with old cortical infarct. There was minimal left maxillary sinus mucosal thickening with no evidence of acute abnormalities. Toxicology panel was negative. Urinalysis was normal. Cogentin was placed on hold. He was given aspirin. He underwent psychiatric evaluation. The patient was uncooperative and angry. He was given Haldol IM and was given Depakote and Risperdal. He was monitored off antibiotic treatment. He was given physical therapy and blood glucose was monitored. Hemoglobin A1c 6.5. He came in with abdominal wound on the mid lower abdomen. Wound care was provided. He was eventually discharged home with home health. FINAL DIAGNOSES: 1. Acute encephalopathy. 2. 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 3. Communicating hydrocephalus. 4. Hypertension. 5. Diabetes mellitus. 6. Developmental delay. 7. Agitation. DISPOSITION: The patient was discharged to board and care with home health. DISCHARGE MEDICATIONS: Refer to medication list. DISCHARGE INSTRUCTIONS: Follow up with PMD in a week. Mike Khan M.D. I have been assigned to dictate discharge summary on this account and I was not involved in the patient's management. Shawna Sanders N.P. DR: Lucie JOB#: [id number] CC: DENY
--- NOTE | 2017-10-05 16:16 | Cardiology Report ---
APPROVED REPORT EKG Measurement Heart [id number] Normal sinus rhythm Possible Left atrial enlargement Rightward axis Borderline ECG
== END 2017-10-01 13:19 | disposition home health service (06) | DRG 58 ==
LOC: EDBD 13:02 → EMR 14:15 → 4E 16:45 → EDBEDREQ 19:07 → 4E 22:39 → OBSVTOIN 22:57 → 4E 10-01 08:42
DX: I69.318 Other symptoms and signs involving cognitive functions following cerebral infarction (principal); G93.49 Other encephalopathy; G91.0 Communicating hydrocephalus; I10 Essential (primary) hypertension; E11.9 Type 2 diabetes mellitus without complications; D72.829 Elevated white blood cell count, unspecified; N40.0 Benign prostatic hyperplasia without lower urinary tract symptoms; F79 Unspecified intellectual disabilities; R45.1 Restlessness and agitation; F32.9 Major depressive disorder, single episode, unspecified; J98.11 Atelectasis; Z79.4 Long term (current) use of insulin
CPT/HCPCS: 36415; 70450; 71045; 80053; 80061; 80307; 80329; 81003; 82248; 82607; 82746; 82962; 83036; 83880; 84443; 84484; 85025; 86592; 86703; 86780; 93005; 99285; J1815